=== PATIENT | female | born 1955 | race African-American/Black ===

== ENCOUNTER → 2016-08-04 | Outpatient (CLI) | payer MEDICARE ==
[~2016-08-04] MED LIST: ALUMINUM H PO; ASPIRIN 81M81 MG/TA2 PO; BETASERON0.3 MG SC; CARDI-OMEGA1000 MG PO; CEFTIN 250250 MG/TAB PO; CEFTIN500 MG PO; CIPRO 500MG TA500 MG PO; CLEOCIN HCL300 MG PO; COLACE 100100 MG/CAP PO; CORRECTIVE LAXAT5 MG PO; CRANBERRY450 MG PO; DIME240E; DIME240E PO; DITROPAN 5MG TAB5 MG PO; DULCOLAX10 MG RC; EPA FISH OIL1 SGL PO; INVANZ INJ1 G/VIAL IV; KLOR-CON M2020 MEQ PO; LASIX 20MG TABL20 MG PO; LEVAQUIN 750MG750 M1 PO; LOPRESSOR 225 MG/TAB PO; MAALOX ADVANCE355 ML PO; MACRODANTIN50 MG/CA1 PO; MERREM IV1 GM IV; MILK OF MA400 MG/5 M PO; MIRALAX PA17 GM/Dose PO; MOTRIN 600600 MG/TAB PO; MUCINEX 60600 MG/TA1 PO; MYRBETR50MG PO; NEURONTIN300 MG/CAP PO; NORCO 325 MG-51 TAB PO; NYAMYC100000 U/G TOP; OXYGEN; PEPCID AC20 M1 PO; PRADAXA75 MG PO; SENNA-GEN PO; TOPAMAX50 MG PO; TOPROL XL 25MG25 MG PO; TYLENOL 325MG325 MG PO; ULTRAM 50MG TAB50 MG PO; ULTRAM ER100 MG PO; VITAMIN D31000 IU PO; ZANAFLEX CAPSULE2 MG PO; ZEBETA 5MG5 MG PO; ZOFRAN8 MG PO; ZOSYN 3.373.375 GM/V IV; [UNRECOGNIZED DRUG - CODE]
[2016-08-04 16:34] LABS: PH 8 (5-8); SQUAMOUS EPITHELIAL None Seen /hpf; URINE APPEARANCE Clear; URINE BACTERIA None Seen /hpf; URINE BILIRUBIN Negative (NEGATIVE); URINE BLOOD Negative (NEGATIVE); URINE COLOR Straw; URINE GLUCOSE Negative (NEGATIVE); URINE KETONE Negative (NEGATIVE); URINE RBC 0-2 /hpf; URINE UROBILINOGEN Negative (NEGATIVE); URINE WBC 0-2 /hpf
== END ==
LOC: ZCOL.LAB 16:05 → COL.LAB 16:05
PROVIDERS: Internal Medicine
DX: Z01.89 Encounter for other specified special examinations (principal)

== ENCOUNTER → 2016-08-13 | Outpatient (CLI) | payer MEDICARE ==
[2016-08-13 10:34] LABS: HEMATOCRIT 37.9 % (37.0-47.0); HEMOGLOBIN 12.3 g/dl (12.5-16.0)
[2016-08-13 10:42] LABS: CALCIUM 9.2 mg/dL (8.4-10.2); CREATININE, serum 0.62 mg/dL (0.52-1.25); POTASSIUM 3.9 mmol/L (3.4-5.0)
== END ==
LOC: ZCOL.LAB 09:20
PROVIDERS: Internal Medicine
DX: G35 Multiple sclerosis (principal); E50.7 Other ocular manifestations of vitamin A deficiency

== ENCOUNTER → 2016-08-21 | Outpatient (CLI) | payer MEDICARE ==
[2016-08-21 15:59] LABS: BASO % 0.4 % (0.0-2.0); EOS # 0.2 (0.0-0.7); EOS % 2.5 % (0-4.0); GRAN # 4.4 (1.4-6.5); GRAN % 65.4 % (42.2-75.2); LYMPH # 1.4 (1.2-3.4); LYMPH % 21.3 % (20.0-51.0); MEAN CELL VOLUME 97 fl (80.0-100.0); MEAN CORPUSCULAR HGB CONC 32 g/dl (33.0-37.0); MEAN PLATELET VOLUME 10.9 fl (7.4-10.4); MONO # 0.7 (0.1-0.6); MONO % 10.1 % (1.7-9.3); PLATELET COUNT 240 K/mm3 (130-400); RED BLOOD COUNT 3.71 M/mm3 (4.10-5.30); REDCELL DISTRIBUTION WIDTH-CV 12.3 % (11.5-14.5); WHITE BLOOD COUNT 6.7 K/mm3 (4.8-10.8)
[2016-08-21 16:00] LABS: HEMATOCRIT 35.9 % (37.0-47.0); HEMOGLOBIN 11.6 g/dl (12.5-16.0); MEAN CORPUSCULAR HEMOGLOBIN 31 pg (27.0-31.0)
== END ==
LOC: ZCOL.LAB 15:19
PROVIDERS: Internal Medicine
DX: G35 Multiple sclerosis (principal)

== ENCOUNTER → 2016-08-22 | Outpatient (CLI) | payer MEDICARE ==
[2016-08-22 13:07] LABS: THYROID STIMULATING HORMONE 1.64 uIU/mL (0.465-4.680)
[2016-08-22 13:33] LABS: ADJUSTED CALCIUM 9.8 mg/dL (8.4-10.2); ALBUMIN 3.2 gm/dL (3.5-5.0); BILIRUBIN,TOTAL 0.5 mg/dL (0.0-1.0); CALCIUM 9.2 mg/dL (8.4-10.2); CREATININE, serum 0.57 mg/dL (0.52-1.25); POTASSIUM 4.4 mmol/L (3.4-5.0); TOTAL PROTEIN 6.3 gm/dL (6.4-8.2)
== END ==
LOC: ZCOL.LAB 11:36
PROVIDERS: Internal Medicine
DX: I10 Essential (primary) hypertension (principal); E03.8 Other specified hypothyroidism

== ENCOUNTER → 2016-08-30 | Outpatient (REF) | LOC: ZAIV 06:00 | DX: Z45.2 Encounter for adjustment and management of vascular access device (principal) ==

== ENCOUNTER → 2016-09-05 | Outpatient (CLI) | payer MEDICARE ==
[2016-09-05 16:34] LABS: PH 9 (5-8); URINE APPEARANCE Cloudy; URINE BACTERIA Rare /hpf; URINE BILIRUBIN Negative (NEGATIVE); URINE BLOOD Negative (NEGATIVE); URINE COLOR Yellow; URINE GLUCOSE Negative (NEGATIVE); URINE KETONE Negative (NEGATIVE); URINE URIC ACID CRYSTAL Present /hpf; URINE UROBILINOGEN Negative (NEGATIVE); URINE WBC 20-50 /hpf
== END ==
LOC: ZCOL.LAB 16:02
PROVIDERS: Internal Medicine
DX: N39.0 Urinary tract infection, site not specified (principal)

== ENCOUNTER → 2016-09-10 | Outpatient (CLI) | payer MEDICARE, MEDICAID ==
[2016-09-10 16:54] LABS: HEMATOCRIT 37.7 % (37.0-47.0); HEMOGLOBIN 12.3 g/dl (12.5-16.0)
[2016-09-10 16:58] LABS: CALCIUM 9.1 mg/dL (8.4-10.2); CREATININE, serum 0.6 mg/dL (0.52-1.25); POTASSIUM 4.3 mmol/L (3.4-5.0)
== END ==
LOC: ZCOL.LAB 16:15
PROVIDERS: Internal Medicine
DX: R55 Syncope and collapse (principal); N31.2 Flaccid neuropathic bladder, not elsewhere classified; K21.9 Gastro-esophageal reflux disease without esophagitis

== ENCOUNTER → 2016-09-14 | Outpatient (CLI) | payer MEDICARE, MEDICAID | LOC: ZCOL.LAB 11:25 | DX: Z53.9 Procedure and treatment not carried out, unspecified reason (principal) ==

== ENCOUNTER → 2016-10-02 | Outpatient (CLI) | payer MEDICARE ==
[2016-10-02 21:09] LABS: PH 6 (5-8); URINE APPEARANCE Cloudy; URINE BACTERIA Rare /hpf; URINE BILIRUBIN Negative (NEGATIVE); URINE BLOOD 1+ (NEGATIVE); URINE COLOR Yellow; URINE GLUCOSE Negative (NEGATIVE); URINE KETONE Negative (NEGATIVE); URINE RBC >50 /hpf; URINE UROBILINOGEN Negative (NEGATIVE); URINE WBC 20-50 /hpf
== END ==
LOC: ZCOL.LAB 18:53
PROVIDERS: Internal Medicine
DX: N39.0 Urinary tract infection, site not specified (principal)

== ENCOUNTER → 2016-10-08 | Outpatient (CLI) | payer MEDICARE ==
[2016-10-08 16:01] LABS: ADJUSTED CALCIUM 10.1 mg/dL (8.4-10.2); ALBUMIN 3.2 gm/dL (3.5-5.0); BILIRUBIN,TOTAL 0.5 mg/dL (0.0-1.0); CALCIUM 9.5 mg/dL (8.4-10.2); CREATININE, serum 0.58 mg/dL (0.52-1.25); POTASSIUM 4.4 mmol/L (3.4-5.0); TOTAL PROTEIN 6.4 gm/dL (6.4-8.2)
== END ==
LOC: EDSTATUS 11:43 → ZCOL.LAB 15:14
PROVIDERS: Internal Medicine
DX: I10 Essential (primary) hypertension (principal)

== ENCOUNTER → 2016-10-14 | Outpatient (CLI) | payer MEDICARE | LOC: ZCOL.LAB 21:20 | DX: Z53.9 Procedure and treatment not carried out, unspecified reason (principal) ==

== ENCOUNTER → 2016-10-15 | Outpatient (CLI) | payer MEDICARE, MEDICAID ==
[2016-10-15 07:49] LABS: BASO % 0.6 % (0.0-2.0); EOS # 0.2 (0.0-0.7); EOS % 3.5 % (0-4.0); GRAN # 3.8 (1.4-6.5); GRAN % 59.7 % (42.2-75.2); HEMATOCRIT 37.5 % (37.0-47.0); HEMOGLOBIN 11.6 g/dl (12.5-16.0); LYMPH # 1.8 (1.2-3.4); LYMPH % 28.6 % (20.0-51.0); MEAN CELL VOLUME 102 fl (80.0-100.0); MEAN CORPUSCULAR HEMOGLOBIN 32 pg (27.0-31.0); MEAN CORPUSCULAR HGB CONC 31 g/dl (33.0-37.0); MEAN PLATELET VOLUME 10.9 fl (7.4-10.4); MONO # 0.4 (0.1-0.6); MONO % 6.8 % (1.7-9.3); PLATELET COUNT 290 K/mm3 (130-400); RED BLOOD COUNT 3.68 M/mm3 (4.10-5.30); WHITE BLOOD COUNT 6.3 K/mm3 (4.8-10.8)
== END ==
LOC: ZCOL.LAB 07:17
PROVIDERS: Internal Medicine
DX: N39.0 Urinary tract infection, site not specified (principal)

== ENCOUNTER → 2016-11-02 | Outpatient (CLI) | payer MEDICARE, MEDICAID ==
[2016-11-02 12:32] LABS: PH 8 (5-8); SQUAMOUS EPITHELIAL 0-2 /hpf; URINE APPEARANCE Cloudy; URINE BACTERIA Rare /hpf; URINE BILIRUBIN Negative (NEGATIVE); URINE BLOOD Negative (NEGATIVE); URINE COLOR Yellow; URINE GLUCOSE Negative (NEGATIVE); URINE KETONE Negative (NEGATIVE); URINE URIC ACID CRYSTAL Present /hpf; URINE UROBILINOGEN Negative (NEGATIVE); URINE WBC 20-50 /hpf
== END ==
LOC: ZCOL.LAB 11:00
PROVIDERS: Internal Medicine
DX: Z01.89 Encounter for other specified special examinations (principal)

== ENCOUNTER → 2016-11-05 | Outpatient (CLI) | payer MEDICARE, MEDICAID ==
[2016-11-05 16:05] LABS: HEMATOCRIT 35.1 % (37.0-47.0); HEMOGLOBIN 11.3 g/dl (12.5-16.0)
[2016-11-05 16:12] LABS: CALCIUM 8.9 mg/dL (8.4-10.2); CREATININE, serum 0.58 mg/dL (0.52-1.25); POTASSIUM 4.2 mmol/L (3.4-5.0)
== END ==
LOC: ZCOL.LAB 15:09
PROVIDERS: Internal Medicine
DX: E13.620 Other specified diabetes mellitus with diabetic dermatitis (principal); D55.1 Anemia due to other disorders of glutathione metabolism

== ENCOUNTER → 2016-11-13 | Outpatient (CLI) | payer MEDICARE, MEDICAID ==
[2016-11-13 17:57] LABS: PH 7 (5-8); SQUAMOUS EPITHELIAL 0-2 /hpf; URINE APPEARANCE Clear; URINE BACTERIA None Seen /hpf; URINE BILIRUBIN Negative (NEGATIVE); URINE BLOOD 1+ (NEGATIVE); URINE COLOR Straw; URINE GLUCOSE Negative (NEGATIVE); URINE KETONE Negative (NEGATIVE); URINE RBC 0-2 /hpf; URINE UROBILINOGEN Negative (NEGATIVE)
== END ==
LOC: ZCOL.LAB 17:32
PROVIDERS: Internal Medicine
DX: Z02.89 Encounter for other administrative examinations (principal)

== ENCOUNTER → 2016-11-18 | Outpatient (CLI) | payer MEDICARE, MEDICAID | LOC: ZCOL.LAB 21:30 | DX: E55.9 Vitamin D deficiency, unspecified (principal); Z01.89 Encounter for other specified special examinations ==

== ENCOUNTER → 2016-11-25 | Outpatient (CLI) | payer MEDICARE, MEDICAID ==
[2016-11-25 21:20] LABS: CREATININE, serum 0.62 mg/dL (0.52-1.25); POTASSIUM 4.6 mmol/L (3.4-5.0)
== END ==
LOC: ZCOL.LAB 19:59
PROVIDERS: Internal Medicine
DX: E55.9 Vitamin D deficiency, unspecified (principal); Z02.89 Encounter for other administrative examinations

== ENCOUNTER → 2016-12-03 | Outpatient (CLI) | payer MEDICARE, MEDICAID ==
[2016-12-03 21:27] LABS: HEMATOCRIT 35.3 % (37.0-47.0); HEMOGLOBIN 11.5 g/dl (12.5-16.0)
[2016-12-03 21:33] LABS: CALCIUM 9.2 mg/dL (8.4-10.2); CREATININE, serum 0.63 mg/dL (0.52-1.25); POTASSIUM 4.6 mmol/L (3.4-5.0)
== END ==
LOC: ZCOL.LAB 16:50
PROVIDERS: Internal Medicine
DX: D58.2 Other hemoglobinopathies (principal); E55.9 Vitamin D deficiency, unspecified; Z02.89 Encounter for other administrative examinations

== ENCOUNTER → 2016-12-31 | Outpatient (CLI) | payer MEDICARE, MEDICAID ==
[2016-12-31 14:23] LABS: HEMATOCRIT 36.1 % (37.0-47.0); HEMOGLOBIN 11.5 g/dl (12.5-16.0)
[2016-12-31 14:34] LABS: CALCIUM 8.6 mg/dL (8.4-10.2); CREATININE, serum 0.53 mg/dL (0.52-1.25); POTASSIUM 3.7 mmol/L (3.4-5.0)
== END ==
LOC: ZCOL.LAB 11:10
PROVIDERS: Internal Medicine
DX: E11.21 Type 2 diabetes mellitus with diabetic nephropathy (principal); D55.1 Anemia due to other disorders of glutathione metabolism; E55.9 Vitamin D deficiency, unspecified

== ENCOUNTER → 2017-01-01 | Outpatient (REF) | LOC: ZAIV 06:00 | DX: Z01.89 Encounter for other specified special examinations (principal) ==

== ENCOUNTER → 2017-01-06 | Outpatient (CLI) | payer MEDICARE, MEDICAID ==
[2017-01-06 14:48] LABS: BASO % 0.4 % (0.0-2.0); EOS # 0.4 (0.0-0.7); GRAN # 7.5 (1.4-6.5); GRAN % 70.3 % (42.2-75.2); LYMPH # 1.5 (1.2-3.4); MEAN CELL VOLUME 95 fl (80.0-100.0); MEAN CORPUSCULAR HGB CONC 32 g/dl (33.0-37.0); MEAN PLATELET VOLUME 9.7 fl (7.4-10.4); MONO # 1.1 (0.1-0.6); MONO % 10.6 % (1.7-9.3); PLATELET COUNT 327 K/mm3 (130-400); RED BLOOD COUNT 3.72 M/mm3 (4.10-5.30); REDCELL DISTRIBUTION WIDTH-CV 12.2 % (11.5-14.5); WHITE BLOOD COUNT 10.7 K/mm3 (4.8-10.8)
[2017-01-06 14:49] LABS: HEMATOCRIT 35.2 % (37.0-47.0); HEMOGLOBIN 11.2 g/dl (12.5-16.0); MEAN CORPUSCULAR HEMOGLOBIN 30 pg (27.0-31.0)
== END ==
LOC: ZCOL.LAB 14:29
PROVIDERS: Psychiatry & Neurology Neurology
DX: Z51.81 Encounter for therapeutic drug level monitoring (principal); G35 Multiple sclerosis

== ENCOUNTER → 2017-01-14 | Outpatient (CLI) | payer MEDICARE, MEDICAID ==
[2017-01-14 18:51] LABS: BASO % 0.6 % (0.0-2.0); EOS # 0.4 (0.0-0.7); EOS % 6.7 % (0-4.0); GRAN # 3.1 (1.4-6.5); GRAN % 58.8 % (42.2-75.2); HEMATOCRIT 24.9 % (37.0-47.0); HEMOGLOBIN 7.9 g/dl (12.5-16.0); LYMPH # 1.3 (1.2-3.4); LYMPH % 24.4 % (20.0-51.0); MEAN CELL VOLUME 96 fl (80.0-100.0); MEAN CORPUSCULAR HEMOGLOBIN 30 pg (27.0-31.0); MEAN CORPUSCULAR HGB CONC 32 g/dl (33.0-37.0); MEAN PLATELET VOLUME 9.8 fl (7.4-10.4); MONO # 0.5 (0.1-0.6); MONO % 8.7 % (1.7-9.3); PLATELET COUNT 299 K/mm3 (130-400); REDCELL DISTRIBUTION WIDTH-CV 12.2 % (11.5-14.5); WHITE BLOOD COUNT 5.2 K/mm3 (4.8-10.8)
== END ==
LOC: ZCOL.LAB 18:35
PROVIDERS: Internal Medicine
DX: N39.0 Urinary tract infection, site not specified (principal)

== ENCOUNTER → 2017-01-28 | Outpatient (CLI) | payer MEDICARE, MEDICAID ==
[2017-01-28 16:51] LABS: HEMATOCRIT 37.9 % (37.0-47.0); HEMOGLOBIN 12.3 g/dl (12.5-16.0)
[2017-01-28 16:59] LABS: CALCIUM 8.9 mg/dL (8.4-10.2); CREATININE, serum 0.63 mg/dL (0.52-1.25); POTASSIUM 4.2 mmol/L (3.4-5.0)
== END ==
LOC: ZCOL.LAB 16:37
PROVIDERS: Internal Medicine
DX: D55.1 Anemia due to other disorders of glutathione metabolism (principal); E55.9 Vitamin D deficiency, unspecified

== ENCOUNTER → 2017-02-03 | Outpatient (CLI) | payer MEDICARE, MEDICAID ==
[2017-02-03 17:13] LABS: PH 7 (5-8); URINE APPEARANCE Cloudy; URINE BACTERIA Rare /hpf; URINE BILIRUBIN Negative (NEGATIVE); URINE BLOOD 1+ (NEGATIVE); URINE COLOR Yellow; URINE GLUCOSE Negative (NEGATIVE); URINE KETONE Negative (NEGATIVE); URINE UROBILINOGEN Negative (NEGATIVE); URINE WBC >50 /hpf
== END ==
LOC: ZCOL.LAB 16:17
PROVIDERS: Psychiatry & Neurology Neurology
DX: N32.81 Overactive bladder (principal)

== ENCOUNTER → 2017-02-25 | Outpatient (CLI) | payer MEDICARE, MEDICAID ==
[2017-02-25 16:30] LABS: HEMATOCRIT 37.2 % (37.0-47.0)
[2017-02-25 16:45] LABS: HEMOGLOBIN 11.8 g/dl (12.5-16.0)
== END ==
LOC: ZCOL.LAB 14:53
PROVIDERS: Internal Medicine
DX: D64.9 Anemia, unspecified (principal); E55.9 Vitamin D deficiency, unspecified; I10 Essential (primary) hypertension

== ENCOUNTER → 2017-02-27 | Outpatient (CLI) | payer MEDICARE, MEDICAID ==
[2017-02-27 12:26] LABS: HEMATOCRIT 37.5 % (37.0-47.0)
[2017-02-27 12:27] LABS: HEMOGLOBIN 11.9 g/dl (12.5-16.0)
[2017-02-27 12:40] LABS: CALCIUM 9.1 mg/dL (8.4-10.2); CREATININE, serum 0.59 mg/dL (0.52-1.25); POTASSIUM 4.5 mmol/L (3.4-5.0)
== END ==
LOC: ZCOL.LAB 12:14
PROVIDERS: Internal Medicine
DX: D55.1 Anemia due to other disorders of glutathione metabolism (principal); E55.9 Vitamin D deficiency, unspecified; I10 Essential (primary) hypertension

== ENCOUNTER 2017-03-20 12:15 | Inpatient (IN) | payer MEDICARE, MEDICAID ==
[~2017-03-20] VITALS: Ht 167.6 cm; Wt 98.7 kg
[~2017-03-20 12:15] MED LIST changes: -CIPRO 500MG TA500 MG PO; -EPA FISH OIL1 SGL PO; -MUCINEX 60600 MG/TA1 PO; -MYRBETR50MG PO; -NYAMYC100000 U/G TOP; -TOPROL XL 25MG25 MG PO; -ZEBETA 5MG5 MG PO
[2017-03-20 12:59] LABS: BASO # 0.1 (0.0-0.2); BASO % 0.3 % (0.0-2.0); EOS # 0.1 (0.0-0.7); HEMATOCRIT 39.2 % (37.0-47.0); HEMOGLOBIN 12.7 g/dl (12.5-16.0); LYMPH # 1.3 (1.2-3.4); LYMPH % 8.7 % (20.0-51.0); MEAN CELL VOLUME 93 fl (80.0-100.0); MEAN CORPUSCULAR HEMOGLOBIN 30 pg (27.0-31.0); MEAN CORPUSCULAR HGB CONC 32 g/dl (33.0-37.0); MEAN PLATELET VOLUME 9.4 fl (7.4-10.4); MONO # 0.9 (0.1-0.6); MONO % 6.5 % (1.7-9.3); PLATELET COUNT 339 K/mm3 (130-400); RED BLOOD COUNT 4.24 M/mm3 (4.10-5.30); REDCELL DISTRIBUTION WIDTH-CV 14.1 % (11.5-14.5); WHITE BLOOD COUNT 14.4 K/mm3 (4.8-10.8)
[2017-03-20 13:11] LABS: ADJUSTED CALCIUM 8.9 mg/dL (8.4-10.2); ALBUMIN 3.9 gm/dL (3.5-5.0); BILIRUBIN,TOTAL 0.6 mg/dL (0.0-1.0); CALCIUM 8.8 mg/dL (8.4-10.2); CREATININE, serum 0.53 mg/dL (0.52-1.25); TOTAL PROTEIN 7.8 gm/dL (6.4-8.2)
[2017-03-20 14:11] LABS: PH 8 (5-8); URINE APPEARANCE Cloudy; URINE BACTERIA Rare /hpf; URINE BILIRUBIN Negative (NEGATIVE); URINE BLOOD 2+ (NEGATIVE); URINE COLOR Yellow; URINE GLUCOSE Negative (NEGATIVE); URINE KETONE Negative (NEGATIVE); URINE RBC >50 /hpf; URINE TRIPLE PHOSPHATE CRYSTAL Present /hpf; URINE UROBILINOGEN Negative (NEGATIVE)
[2017-03-20 14:12] LABS: URINE WBC >50 /hpf
[2017-03-20] MEDS ORDERED: ZEBETA 5MG5 MG PO ×2 (14:57)
[2017-03-20] MEDS ORDERED: DIME240E (14:59)
[2017-03-20] MEDS ORDERED: TOPROL XL 25MG25 MG PO (15:03)
[2017-03-20] MEDS ORDERED: EPA FISH OIL1 SGL PO (15:04)
[2017-03-20] MEDS ORDERED: MYRBETR50MG PO (15:05)
[2017-03-20 16:28] VITALS: BP 109/58; PULSE 105; TEMP 98.3
[2017-03-20] MEDS ORDERED: PRADAXA75 MG PO (18:43)
[2017-03-20 20:26] VITALS: BP 127/62; PULSE 95; TEMP 97.2
[2017-03-21 00:09] VITALS: BP 122/73; PULSE 104; TEMP 99.1
[2017-03-21 04:47] VITALS: BP 128/53; PULSE 97; TEMP 98.2
[2017-03-21 06:36] LABS: BASO % 0.4 % (0.0-2.0); EOS # 0.3 (0.0-0.7); EOS % 2.8 % (0-4.0); GRAN % 71.5 % (42.2-75.2); LYMPH # 1.8 (1.2-3.4); LYMPH % 16.2 % (20.0-51.0); MEAN CELL VOLUME 95 fl (80.0-100.0); MEAN CORPUSCULAR HGB CONC 31 g/dl (33.0-37.0); MEAN PLATELET VOLUME 9.5 fl (7.4-10.4); MONO % 8.7 % (1.7-9.3); PLATELET COUNT 310 K/mm3 (130-400); RED BLOOD COUNT 3.77 M/mm3 (4.10-5.30); REDCELL DISTRIBUTION WIDTH-CV 14.1 % (11.5-14.5); WHITE BLOOD COUNT 11.1 K/mm3 (4.8-10.8)
[2017-03-21 06:37] LABS: HEMATOCRIT 35.8 % (37.0-47.0); HEMOGLOBIN 11.2 g/dl (12.5-16.0); MEAN CORPUSCULAR HEMOGLOBIN 30 pg (27.0-31.0)
[2017-03-21 06:52] LABS: CALCIUM 8.4 mg/dL (8.4-10.2); CREATININE, serum 0.55 mg/dL (0.52-1.25); POTASSIUM 3.4 mmol/L (3.4-5.0)
[2017-03-21 07:50] VITALS: BP 124/63; PULSE 103; TEMP 97.1
[2017-03-21 12:02] VITALS: BP 105/76; PULSE 110; TEMP 97.2
[2017-03-21 16:29] VITALS: BP 109/60; PULSE 86; TEMP 98.4
[2017-03-21 19:41] VITALS: BP 114/50; PULSE 103; TEMP 98
[2017-03-22 00:31] VITALS: BP 93/79; PULSE 88; TEMP 98.3
[2017-03-22 04:12] VITALS: BP 122/44; PULSE 87; TEMP 98.6
[2017-03-22 08:15] VITALS: BP 106/57; PULSE 81; TEMP 98.1
[2017-03-22 08:54] LABS: BASO % 0.3 % (0.0-2.0); EOS # 0.4 (0.0-0.7); EOS % 5.1 % (0-4.0); GRAN # 5.1 (1.4-6.5); GRAN % 64.9 % (42.2-75.2); LYMPH # 1.7 (1.2-3.4); MEAN CELL VOLUME 93 fl (80.0-100.0); MEAN CORPUSCULAR HGB CONC 32 g/dl (33.0-37.0); MEAN PLATELET VOLUME 9.2 fl (7.4-10.4); MONO # 0.7 (0.1-0.6); MONO % 8.2 % (1.7-9.3); PLATELET COUNT 301 K/mm3 (130-400); REDCELL DISTRIBUTION WIDTH-CV 14.3 % (11.5-14.5); WHITE BLOOD COUNT 7.9 K/mm3 (4.8-10.8)
[2017-03-22 08:56] LABS: HEMATOCRIT 34.4 % (37.0-47.0); MEAN CORPUSCULAR HEMOGLOBIN 30 pg (27.0-31.0)
[2017-03-22 11:52] VITALS: BP 103/53; PULSE 79; TEMP 98.9
[2017-03-22 16:10] VITALS: BP 110/71; PULSE 72; TEMP 98
[2017-03-22 20:20] VITALS: BP 103/50; PULSE 71; TEMP 98.6
[2017-03-23] VITALS (7 sets, daily range): BP systolic 105–142; BP diastolic 50–84; PULSE 67–85; TEMP 97.8–99.5
[2017-03-24 04:20] VITALS: BP 128/65; PULSE 77; TEMP 98
[2017-03-24 07:52] VITALS: BP 110/55; PULSE 77; TEMP 97.8
[2017-03-24] MEDS ORDERED: MUCINEX 60600 MG/TA1 PO (09:19)
[2017-03-24] MEDS ORDERED: NYAMYC100000 U/G TOP (09:20)
[2017-03-24] MEDS ORDERED: ULTRAM ER100 MG PO (09:21)
[2017-03-24] MEDS ORDERED: CIPRO 500MG TA500 MG PO (09:32)
[2017-03-24 12:48] VITALS: BP 128/67; PULSE 81; TEMP 97.7
[2017-03-24 14:03] VITALS: BP 128/67; PULSE 81; TEMP 97.7
== END 2017-03-24 14:35 | DRG 698 ==
LOC: COL.ER 12:15 → MEDICAL 15:22
PROVIDERS: Emergency Medicine; Family Medicine; Nurse Practitioner Family
DX: T83.511A Infection and inflammatory reaction due to indwelling urethral catheter, initial encounter (principal); A41.52 Sepsis due to Pseudomonas; B96.5 Pseudomonas (aeruginosa) (mallei) (pseudomallei) as the cause of diseases classified elsewhere; N39.0 Urinary tract infection, site not specified; G35 Multiple sclerosis; I10 Essential (primary) hypertension; R13.10 Dysphagia, unspecified
CPT/HCPCS: 99222-AI; 99232-AI; 99239; J0696; J2185; J7030

== ENCOUNTER → 2017-04-04 | Outpatient (CLI) | payer MEDICARE, MEDICAID ==
[~2017-04-04] MED LIST changes: +CIPRO 500MG TA500 MG PO; +EPA FISH OIL1 SGL PO; +MUCINEX 60600 MG/TA1 PO; +MYRBETR50MG PO; +NYAMYC100000 U/G TOP; +TOPROL XL 25MG25 MG PO; +ZEBETA 5MG5 MG PO
[2017-04-04 16:16] LABS: PH 6 (5-8); SQUAMOUS EPITHELIAL 0-2 /hpf; URINE APPEARANCE Clear; URINE BACTERIA Many /hpf; URINE BILIRUBIN Negative (NEGATIVE); URINE BLOOD 2+ (NEGATIVE); URINE COLOR Yellow; URINE GLUCOSE Negative (NEGATIVE); URINE KETONE Negative (NEGATIVE); URINE UROBILINOGEN Negative (NEGATIVE)
== END ==
LOC: ZCOL.LAB 15:53
PROVIDERS: Internal Medicine
DX: N39.0 Urinary tract infection, site not specified (principal)

== ENCOUNTER → 2017-04-17 | Outpatient (CLI) | payer MEDICARE, MEDICAID ==
[2017-04-17 13:02] LABS: BASO % 0.7 % (0.0-2.0); EOS # 0.6 (0.0-0.7); EOS % 10.1 % (0-4.0); GRAN % 49.8 % (42.2-75.2); HEMATOCRIT 38.3 % (37.0-47.0); HEMOGLOBIN 12.2 g/dl (12.5-16.0); LYMPH # 1.8 (1.2-3.4); MEAN CELL VOLUME 94 fl (80.0-100.0); MEAN CORPUSCULAR HEMOGLOBIN 30 pg (27.0-31.0); MEAN CORPUSCULAR HGB CONC 32 g/dl (33.0-37.0); MEAN PLATELET VOLUME 10.6 fl (7.4-10.4); MONO # 0.6 (0.1-0.6); MONO % 9.1 % (1.7-9.3); PLATELET COUNT 289 K/mm3 (130-400); RED BLOOD COUNT 4.07 M/mm3 (4.10-5.30)
== END ==
LOC: ZCOL.LAB 12:43
PROVIDERS: Internal Medicine
DX: N39.0 Urinary tract infection, site not specified (principal)

== ENCOUNTER → 2017-05-09 | Outpatient (CLI) | payer MEDICARE, MEDICAID ==
[2017-05-09 15:06] LABS: COLLECTION METHOD CATHETER
[2017-05-09 15:15] LABS: BUDDING YEAST Present /hpf; MUCOUS Present /lpf; PH 7 (5-8); SQUAMOUS EPITHELIAL 0-2 /hpf; URINE APPEARANCE Cloudy; URINE BACTERIA Rare /hpf; URINE BILIRUBIN Negative (NEGATIVE); URINE BLOOD 3+ (NEGATIVE); URINE COLOR Yellow; URINE GLUCOSE Negative (NEGATIVE); URINE KETONE Negative (NEGATIVE); URINE LEUKOCYTE ESTERASE 2+ (NEGATIVE); URINE PROTEIN(semi-quant) Negative (NEGATIVE); URINE RBC None Seen /hpf; URINE UROBILINOGEN Negative (NEGATIVE)
== END ==
LOC: ZCOL.LAB 15:05
PROVIDERS: Internal Medicine
DX: Z01.89 Encounter for other specified special examinations (principal)

== ENCOUNTER → 2017-05-21 | Outpatient (CLI) | payer MEDICARE, MEDICAID ==
[2017-05-21 15:12] LABS: HEMATOCRIT 39.8 % (37.0-47.0); HEMOGLOBIN 12.8 g/dl (12.5-16.0)
[2017-05-21 15:59] LABS: CREATININE, serum 0.69 mg/dL (0.52-1.25); POTASSIUM 4.4 mmol/L (3.4-5.0)
== END ==
LOC: ZCOL.LAB 13:56
DX: G35 Multiple sclerosis (principal); I10 Essential (primary) hypertension; Z86.711 Personal history of pulmonary embolism

== ENCOUNTER → 2017-06-04 | Outpatient (CLI) | payer MEDICARE, MEDICAID ==
[2017-06-04 05:35] LABS: COLLECTION METHOD CATHETER
[2017-06-04 06:13] LABS: AMORPHOUS CRYSTAL Present /uL; MUCOUS Present /lpf; PH 5 (5-8); URINE APPEARANCE Turbid; URINE BACTERIA Moderate /hpf; URINE BILIRUBIN Negative (NEGATIVE); URINE BLOOD 2+ (NEGATIVE); URINE COLOR Amber; URINE GLUCOSE Negative (NEGATIVE); URINE KETONE Negative (NEGATIVE); URINE LEUKOCYTE ESTERASE 3+ (NEGATIVE); URINE PROTEIN(semi-quant) 1+ (NEGATIVE); URINE RBC 20-50 /hpf; URINE WBC >50 /hpf
== END ==
LOC: ZCOL.LAB 04:26
PROVIDERS: Internal Medicine
DX: N39.0 Urinary tract infection, site not specified (principal)

== ENCOUNTER → 2017-06-18 | Outpatient (CLI) | payer MEDICARE, MEDICAID ==
[2017-06-18 04:11] LABS: HEMATOCRIT 36.2 % (37.0-47.0); HEMOGLOBIN 11.5 g/dl (12.5-16.0)
[2017-06-18 04:23] LABS: CALCIUM 8.6 mg/dL (8.4-10.2); CREATININE, serum 0.74 mg/dL (0.52-1.25); POTASSIUM 3.8 mmol/L (3.4-5.0)
== END ==
LOC: ZCOL.LAB 03:13
PROVIDERS: Psychiatry & Neurology Neurology
DX: E88.9 Metabolic disorder, unspecified (principal); R71.0 Precipitous drop in hematocrit; E55.9 Vitamin D deficiency, unspecified

== ENCOUNTER → 2017-07-04 | Outpatient (CLI) | payer MEDICARE, MEDICAID ==
[2017-07-04 15:08] LABS: COLLECTION METHOD CATHETER
[2017-07-04 15:18] LABS: MUCOUS Present /lpf; PH 6 (5-8); SQUAMOUS EPITHELIAL 0-2 /hpf; URINE APPEARANCE Clear; URINE BACTERIA Rare /hpf; URINE BILIRUBIN Negative (NEGATIVE); URINE BLOOD 3+ (NEGATIVE); URINE COLOR Yellow; URINE GLUCOSE Negative (NEGATIVE); URINE KETONE Negative (NEGATIVE); URINE LEUKOCYTE ESTERASE 2+ (NEGATIVE); URINE PROTEIN(semi-quant) 1+ (NEGATIVE); URINE RBC >50 /hpf; URINE UROBILINOGEN Negative (NEGATIVE); URINE WBC 20-50 /hpf
== END ==
LOC: ZCOL.LAB 15:03
PROVIDERS: Internal Medicine
DX: N39.0 Urinary tract infection, site not specified (principal)

== ENCOUNTER → 2017-07-17 | Outpatient (REF) ==
[2017-07-17 17:57] LABS: HEMOGLOBIN 12.2 g/dl (12.5-16.0)
[2017-07-17 18:13] LABS: CALCIUM 8.9 mg/dL (8.4-10.2); CREATININE, serum 0.75 mg/dL (0.52-1.25); POTASSIUM 4.6 mmol/L (3.4-5.0)
== END ==
LOC: ZCOL.LAB 17:52
PROVIDERS: Psychiatry & Neurology Neurology
DX: Z01.89 Encounter for other specified special examinations (principal)

== ENCOUNTER → 2017-07-17 | Outpatient (CLI) | payer MEDICARE, MEDICAID | LOC: COL.RAD 12:29 | DX: G35 Multiple sclerosis (principal); R42 Dizziness and giddiness | CPT/HCPCS: A9585 ==

== ENCOUNTER 2017-07-29 10:53 | Outpatient (CLI) | payer MEDICARE, MEDICAID ==
[~2017-07-29] VITALS: Ht 167.6 cm; Wt 103.8 kg
[2017-07-29 11:29] VITALS: BP 99/61; PULSE 66; TEMP 98
== END 2017-07-29 15:18 ==
LOC: EUO 10:53
DX: G35 Multiple sclerosis (principal); Z79.899 Other long term (current) drug therapy
CPT/HCPCS: C9494; J2930; J7050

== ENCOUNTER → 2017-08-08 | Outpatient (CLI) | payer MEDICARE, MEDICAID | LOC: ZCOL.LAB 13:55 | DX: N39.0 Urinary tract infection, site not specified (principal) ==

== ENCOUNTER 2017-08-13 09:58 | Outpatient (CLI) | payer MEDICARE, MEDICAID ==
[2017-08-13 10:59] VITALS: BP 113/83; PULSE 61; TEMP 97.9
[2017-08-13 11:30] VITALS: BP 113/75; PULSE 84; TEMP 97.3
[2017-08-13] MEDS ORDERED: FLEXERIL5 MG PO (11:32)
[2017-08-13 12:00] VITALS: BP 111/76; PULSE 84; TEMP 97.2
[2017-08-13 12:30] VITALS: BP 109/77; PULSE 84; TEMP 97.5
[2017-08-13 13:30] VITALS: BP 109/60; BP 113/70; PULSE 71; PULSE 75; TEMP 97.5
== END 2017-08-13 15:08 | disposition home or self-care (01) ==
LOC: EUO 09:58
DX: G35 Multiple sclerosis (principal)
CPT/HCPCS: J2350; J2930; J7050

== ENCOUNTER → 2017-08-18 | Outpatient (REF) ==
[~2017-08-18] MED LIST changes: +FLEXERIL5 MG PO
[2017-08-18 07:12] LABS: HEMATOCRIT 37.8 % (37.0-47.0)
[2017-08-18 07:13] LABS: HEMOGLOBIN 11.9 g/dl (12.5-16.0)
[2017-08-18 07:24] LABS: CALCIUM 8.7 mg/dL (8.4-10.2); CREATININE, serum 0.67 mg/dL (0.52-1.25); POTASSIUM 4.2 mmol/L (3.4-5.0)
== END ==
LOC: ZCOL.LAB 06:59
PROVIDERS: Internal Medicine
DX: Z01.89 Encounter for other specified special examinations (principal)

== ENCOUNTER → 2017-08-21 | Outpatient (CLI) | payer MEDICARE, MEDICAID ==
[2017-08-21 04:00] LABS: ALBUMIN 3.2 gm/dL (3.5-5.0); BILIRUBIN,TOTAL 0.6 mg/dL (0.0-1.0); CALCIUM 8.9 mg/dL (8.4-10.2); CREATININE, serum 0.64 mg/dL (0.52-1.25); POTASSIUM 4.5 mmol/L (3.4-5.0); TOTAL PROTEIN 6.6 gm/dL (6.4-8.2)
[2017-08-21 04:12] LABS: THYROID STIMULATING HORMONE 1.58 uIU/mL (0.465-4.680)
== END ==
LOC: ZCOL.LAB 03:04
PROVIDERS: Internal Medicine
DX: E13.620 Other specified diabetes mellitus with diabetic dermatitis (principal); R79.89 Other specified abnormal findings of blood chemistry; R94.6 Abnormal results of thyroid function studies; E78.00 Pure hypercholesterolemia, unspecified

== ENCOUNTER 2017-08-26 10:20 | Day surgery (SDC) | payer MEDICARE, MEDICAID ==
[~2017-08-26] VITALS: Ht 167.6 cm; Wt 95.9 kg
[2017-08-26 11:26] VITALS: BP 112/67; PULSE 75; TEMP 98
[2017-08-26] MEDS ORDERED: VITAMIND3 5000 PO (11:44)
[2017-08-26] MEDS ORDERED: MACRODANTIN50 MG/CA1 PO (11:47)
[2017-08-26 17:15] VITALS: BP 107/58; PULSE 74
== END 2017-08-26 17:10 ==
LOC: SDCO 10:20
DX: G35 Multiple sclerosis (principal); N31.9 Neuromuscular dysfunction of bladder, unspecified; N32.81 Overactive bladder; K21.9 Gastro-esophageal reflux disease without esophagitis; I10 Essential (primary) hypertension; Z79.82 Long term (current) use of aspirin; Z86.711 Personal history of pulmonary embolism; Z88.0 Allergy status to penicillin; Z88.2 Allergy status to sulfonamides; Z88.8 Allergy status to other drugs, medicaments and biological substances; G47.00 Insomnia, unspecified; M62.81 Muscle weakness (generalized)
CPT/HCPCS: C1769

== ENCOUNTER → 2017-09-15 | Outpatient (CLI) | payer MEDICARE, MEDICAID ==
[~2017-09-15] MED LIST changes: +VITAMIND3 5000 PO
[2017-09-15 05:14] LABS: HEMATOCRIT 40.7 % (37.0-47.0); HEMOGLOBIN 12.7 g/dl (12.5-16.0)
[2017-09-15 05:21] LABS: CALCIUM 8.8 mg/dL (8.4-10.2); CREATININE, serum 0.65 mg/dL (0.52-1.25); POTASSIUM 3.9 mmol/L (3.4-5.0)
== END ==
LOC: COL.LAB 04:54
PROVIDERS: Internal Medicine
DX: G35 Multiple sclerosis (principal); E55.9 Vitamin D deficiency, unspecified

== ENCOUNTER 2017-09-30 09:29 | Day surgery (SDC) | payer MEDICARE, MEDICAID ==
[~2017-09-30] VITALS: Ht 167.6 cm; Wt 98.9 kg
[2017-09-30 10:11] VITALS: BP 112/63; PULSE 73; TEMP 97.7
[2017-09-30] MEDS ORDERED: DULCOLAX TAB5 MG PO (10:38)
[2017-09-30] MEDS ORDERED: RITALIN 5MG5 MG/TAB PO (10:39)
== END 2017-09-30 13:51 | disposition home or self-care (01) ==
LOC: SDCO 09:29
DX: N36.5 Urethral false passage (principal); N31.9 Neuromuscular dysfunction of bladder, unspecified; N39.0 Urinary tract infection, site not specified; N39.46 Mixed incontinence; G35 Multiple sclerosis; R13.10 Dysphagia, unspecified; I10 Essential (primary) hypertension; K21.9 Gastro-esophageal reflux disease without esophagitis; R29.3 Abnormal posture
CPT/HCPCS: 3305

== ENCOUNTER → 2017-10-03 | Outpatient (CLI) | payer MEDICARE, MEDICAID ==
[~2017-10-03] MED LIST changes: +DULCOLAX TAB5 MG PO; +RITALIN 5MG5 MG/TAB PO
[2017-10-03 12:41] LABS: COLLECTION METHOD CATHETER
[2017-10-03 13:03] LABS: MUCOUS Present /lpf; PH 6 (5-8); URINE APPEARANCE Cloudy; URINE BACTERIA Rare /hpf; URINE BILIRUBIN Negative (NEGATIVE); URINE BLOOD 3+ (NEGATIVE); URINE COLOR Yellow; URINE GLUCOSE Negative (NEGATIVE); URINE KETONE Negative (NEGATIVE); URINE LEUKOCYTE ESTERASE 3+ (NEGATIVE); URINE NITRATE Negative (NEGATIVE); URINE PROTEIN(semi-quant) 2+ (NEGATIVE); URINE RBC >50 /hpf; URINE UROBILINOGEN Negative (NEGATIVE); URINE WBC >50 /hpf
== END ==
LOC: ZCOL.LAB 12:23
PROVIDERS: Internal Medicine
DX: N39.0 Urinary tract infection, site not specified (principal)

== ENCOUNTER → 2017-10-15 | Outpatient (REF) ==
[2017-10-15 17:15] LABS: HEMATOCRIT 45.1 % (37.0-47.0); HEMOGLOBIN 14.3 g/dl (12.5-16.0)
[2017-10-15 17:27] LABS: CREATININE, serum 0.77 mg/dL (0.52-1.25); POTASSIUM 4.9 mmol/L (3.4-5.0)
== END ==
LOC: ZCOL.LAB 17:08
PROVIDERS: Internal Medicine
DX: G35 Multiple sclerosis (principal); E55.9 Vitamin D deficiency, unspecified; Z86.711 Personal history of pulmonary embolism

== ENCOUNTER → 2017-11-07 | Outpatient (REF) ==
[2017-11-07 13:00] LABS: COLLECTION METHOD CATHETER
[2017-11-07 13:44] LABS: MUCOUS Present /lpf; PH 5 (5-8); SQUAMOUS EPITHELIAL 0-2 /hpf; URINE APPEARANCE Turbid; URINE BACTERIA Occasional /hpf; URINE BILIRUBIN Negative (NEGATIVE); URINE BLOOD Negative (NEGATIVE); URINE CALCIUM OXALATE CRYSTAL Present /hpf; URINE COLOR Yellow; URINE GLUCOSE Negative (NEGATIVE); URINE KETONE Negative (NEGATIVE); URINE LEUKOCYTE ESTERASE 3+ (NEGATIVE); URINE NITRATE Negative (NEGATIVE); URINE PROTEIN(semi-quant) 2+ (NEGATIVE); URINE RBC >50 /hpf; URINE UROBILINOGEN Negative (NEGATIVE); URINE WBC >50 /hpf
== END ==
LOC: ZCOL.LAB 12:54
PROVIDERS: Internal Medicine
DX: N39.0 Urinary tract infection, site not specified (principal)

== ENCOUNTER → 2017-11-12 | Outpatient (CLI) | payer MEDICARE, MEDICAID ==
[2017-11-12 14:28] LABS: HEMATOCRIT 42.9 % (37.0-47.0); HEMOGLOBIN 13.5 g/dl (12.5-16.0)
[2017-11-12 14:42] LABS: ALBUMIN 2.8 gm/dL (3.5-5.0); BILIRUBIN,TOTAL 0.2 mg/dL (0.0-1.0); CALCIUM 8.8 mg/dL (8.4-10.2); CREATININE, serum 0.77 mg/dL (0.52-1.25); POTASSIUM 4.4 mmol/L (3.4-5.0); TOTAL PROTEIN 6.2 gm/dL (6.4-8.2)
== END ==
LOC: ZCOL.LAB 14:23
PROVIDERS: Internal Medicine
DX: I10 Essential (primary) hypertension (principal); M62.81 Muscle weakness (generalized); E55.9 Vitamin D deficiency, unspecified

== ENCOUNTER → 2017-12-05 | Outpatient (REF) | LOC: ZCOL.LAB 14:48 | DX: N31.2 Flaccid neuropathic bladder, not elsewhere classified (principal) ==

== ENCOUNTER 2017-12-10 10:26 | Outpatient (CLI) | payer MEDICARE, MEDICAID ==
[~2017-12-10] VITALS: Ht 167.6 cm; Wt 95.0 kg
[2017-12-10 11:02] VITALS: BP 103/77; PULSE 77; TEMP 98
[2017-12-10] MEDS ORDERED: DIME240E PO (11:21)
== END 2017-12-10 12:45 | disposition home or self-care (01) ==
LOC: SDCO 10:26
DX: N31.9 Neuromuscular dysfunction of bladder, unspecified (principal); K59.00 Constipation, unspecified; K21.9 Gastro-esophageal reflux disease without esophagitis; I10 Essential (primary) hypertension; G47.00 Insomnia, unspecified; G35 Multiple sclerosis; N32.81 Overactive bladder; Z79.82 Long term (current) use of aspirin; Z79.01 Long term (current) use of anticoagulants; Z88.0 Allergy status to penicillin; Z88.2 Allergy status to sulfonamides; Z88.5 Allergy status to narcotic agent; Z88.8 Allergy status to other drugs, medicaments and biological substances; Z86.711 Personal history of pulmonary embolism; Z82.49 Family history of ischemic heart disease and other diseases of the circulatory system

== ENCOUNTER → 2017-12-10 | Outpatient (CLI) | payer MEDICARE, MEDICAID ==
[2017-12-10 10:04] LABS: HEMATOCRIT 39.4 % (37.0-47.0); HEMOGLOBIN 12.6 g/dl (12.5-16.0)
[2017-12-10 10:17] LABS: CALCIUM 8.7 mg/dL (8.4-10.2); CREATININE, serum 0.67 mg/dL (0.52-1.25); POTASSIUM 4.5 mmol/L (3.4-5.0)
== END ==
LOC: ZCOL.LAB 09:55
PROVIDERS: Internal Medicine
DX: E55.9 Vitamin D deficiency, unspecified (principal); I10 Essential (primary) hypertension; Z86.711 Personal history of pulmonary embolism

== ENCOUNTER → 2018-01-05 | Outpatient (CLI) | payer MEDICARE, MEDICAID | LOC: ZCOL.LAB 12:39 | DX: N39.0 Urinary tract infection, site not specified (principal) ==

== ENCOUNTER → 2018-01-08 | Outpatient (CLI) | payer MEDICARE, MEDICAID ==
[2018-01-08 18:24] LABS: HEMATOCRIT 40.8 % (37.0-47.0); HEMOGLOBIN 12.9 g/dl (12.5-16.0)
[2018-01-08 18:35] LABS: CALCIUM 8.9 mg/dL (8.4-10.2); CREATININE, serum 0.81 mg/dL (0.52-1.25); POTASSIUM 4.5 mmol/L (3.4-5.0)
== END ==
LOC: ZCOL.LAB 18:14
PROVIDERS: Internal Medicine
DX: I10 Essential (primary) hypertension (principal); D64.9 Anemia, unspecified; E55.9 Vitamin D deficiency, unspecified

== ENCOUNTER → 2018-02-27 | Outpatient (CLI) | payer MEDICARE, MEDICAID | LOC: ZCOL.LAB 11:59 | DX: Z01.89 Encounter for other specified special examinations (principal) ==

== ENCOUNTER → 2018-03-09 | Outpatient (REF) | LOC: ZCOL.LAB 10:36 | DX: Z01.89 Encounter for other specified special examinations (principal); E55.9 Vitamin D deficiency, unspecified ==

== ENCOUNTER → 2018-04-07 | Outpatient (CLI) | payer MEDICARE, MEDICAID | LOC: ZCOL.LAB 18:15 | DX: Z45.2 Encounter for adjustment and management of vascular access device (principal) ==

== ENCOUNTER → 2018-04-29 | Outpatient (REF) ==
[2018-04-29 09:58] LABS: BASO % 0.4 % (0.0-2.0); EOS # 0.3 (0.0-0.7); EOS % 3.5 % (0-4.0); GRAN # 6.1 (1.4-6.5); GRAN % 67.7 % (42.2-75.2); HEMATOCRIT 43.5 % (37.0-47.0); HEMOGLOBIN 13.5 g/dl (12.5-16.0); LYMPH # 1.9 (1.2-3.4); LYMPH % 20.9 % (20.0-51.0); MEAN CELL VOLUME 94 fl (80.0-100.0); MEAN CORPUSCULAR HEMOGLOBIN 29 pg (27.0-31.0); MEAN CORPUSCULAR HGB CONC 31 g/dl (33.0-37.0); MEAN PLATELET VOLUME 9.7 fl (7.4-10.4); MONO # 0.7 (0.1-0.6); MONO % 7.3 % (1.7-9.3); PLATELET COUNT 333 K/mm3 (130-400); RED BLOOD COUNT 4.61 M/mm3 (4.10-5.30); REDCELL DISTRIBUTION WIDTH-CV 13.4 % (11.5-14.5)
[2018-04-29 10:15] LABS: CREATININE, serum 0.61 mg/dL (0.52-1.25); POTASSIUM 4.5 mmol/L (3.4-5.0)
== END ==
LOC: ZCOL.LAB 09:45
PROVIDERS: Internal Medicine
DX: G35 Multiple sclerosis (principal); E55.9 Vitamin D deficiency, unspecified; Z86.711 Personal history of pulmonary embolism

== ENCOUNTER → 2018-05-27 | Outpatient (CLI) | payer MEDICARE, MEDICAID ==
[2018-05-27 14:29] LABS: HEMATOCRIT 47.3 % (37.0-47.0); HEMOGLOBIN 14.8 g/dl (12.5-16.0)
[2018-05-27 14:44] LABS: CALCIUM 9.1 mg/dL (8.4-10.2); CREATININE, serum 0.58 mg/dL (0.52-1.25); POTASSIUM 4.3 mmol/L (3.4-5.0)
== END ==
LOC: COL.LAB 13:19
PROVIDERS: Internal Medicine
DX: G35 Multiple sclerosis (principal)

== ENCOUNTER 2018-06-02 12:19 | Day surgery (SDC) | payer MEDICARE, MEDICAID ==
[~2018-06-02] VITALS: Ht 167.6 cm; Wt 91.8 kg
[2018-06-02 13:36] VITALS: BP 109/63; PULSE 70; TEMP 98.2
[2018-06-02] MEDS ORDERED: DULCOLAX TAB5 MG PO (13:56)
[2018-06-02] MEDS ORDERED: RITALIN 5MG5 MG/TAB PO (13:57)
[2018-06-02] MEDS ORDERED: PEPCID 20MG TAB20 MG PO (13:57)
[2018-06-02] MEDS ORDERED: REFRESH TEARS 330 ML OU (13:58)
[2018-06-02] MEDS ORDERED: SALESE1 LOZ PO (13:58)
[2018-06-02] MEDS ORDERED: NORCO 325 MG-51 TAB PO (13:59)
[2018-06-02] MEDS ORDERED: NORCO 325 MG-101 TAB PO (14:00)
[2018-06-02 16:30] VITALS: BP 109/72; PULSE 66; TEMP 97.6
[2018-06-02] MEDS ORDERED: PYRIDIUM 100MG100 MG PO (16:41)
[2018-06-02] MEDS ORDERED: CIPRO 500MG TA500 MG PO (16:41)
[2018-06-02 16:45] VITALS: BP 120/74; PULSE 61
[2018-06-02 17:00] VITALS: BP 109/72; PULSE 76; TEMP 97.6
== END 2018-06-02 17:35 ==
LOC: SDCO 12:19
DX: N36.42 Intrinsic sphincter deficiency (ISD) (principal); N39.3 Stress incontinence (female) (male); K59.00 Constipation, unspecified; N31.8 Other neuromuscular dysfunction of bladder; K21.0 Gastro-esophageal reflux disease with esophagitis; I10 Essential (primary) hypertension; N32.81 Overactive bladder; G35 Multiple sclerosis; N31.9 Neuromuscular dysfunction of bladder, unspecified; Z79.82 Long term (current) use of aspirin; Z88.0 Allergy status to penicillin; Z88.1 Allergy status to other antibiotic agents; Z88.5 Allergy status to narcotic agent; Z88.2 Allergy status to sulfonamides; Z86.711 Personal history of pulmonary embolism; Z87.440 Personal history of urinary (tract) infections; Z82.49 Family history of ischemic heart disease and other diseases of the circulatory system
CPT/HCPCS: A4215; J0690; J1100; J1885; J2405; J2704; J3010; J7120; L8606

== ENCOUNTER 2018-06-12 06:19 | Emergency (ER) | payer MEDICARE, MEDICAID ==
[~2018-06-12] VITALS: Ht 167.6 cm; Wt 93.6 kg
[~2018-06-12 06:19] MED LIST changes: +NORCO 325 MG-101 TAB PO; +PEPCID 20MG TAB20 MG PO; +PYRIDIUM 100MG100 MG PO; +REFRESH TEARS 330 ML OU; +SALESE1 LOZ PO
[2018-06-12 06:22] VITALS: TEMP 98.7
[2018-06-12 07:32] LABS: COLLECTION METHOD CATHETER
[2018-06-12] MEDS ORDERED: OMNICEF 300MG300 MG PO (07:41)
[2018-06-12 07:45] LABS: AMORPHOUS CRYSTAL Present /uL; PH 8 (5-8); URINE APPEARANCE Cloudy; URINE BACTERIA Rare /hpf; URINE BILIRUBIN Negative (NEGATIVE); URINE BLOOD 3+ (NEGATIVE); URINE COLOR Yellow; URINE GLUCOSE Negative (NEGATIVE); URINE KETONE Negative (NEGATIVE); URINE LEUKOCYTE ESTERASE 3+ (NEGATIVE); URINE NITRATE Negative (NEGATIVE); URINE PROTEIN(semi-quant) 1+ (NEGATIVE); URINE RBC >50 /hpf; URINE UROBILINOGEN Negative (NEGATIVE)
[2018-06-12 08:53] VITALS: BP 123/83; PULSE 83
[2018-06-14] MEDS ORDERED: MACROBID 1100 MG/CAP PO (16:36)
== END 2018-06-12 08:54 | disposition home or self-care (01) ==
LOC: COL.ER 06:19
PROVIDERS: Emergency Medicine
DX: T83.098A Other mechanical complication of other urinary catheter, initial encounter (principal); N31.2 Flaccid neuropathic bladder, not elsewhere classified; N39.498 Other specified urinary incontinence; R31.9 Hematuria, unspecified; K21.9 Gastro-esophageal reflux disease without esophagitis; Z86.711 Personal history of pulmonary embolism; Z79.82 Long term (current) use of aspirin

== ENCOUNTER → 2018-06-30 | Outpatient (REF) ==
[~2018-06-30] MED LIST changes: +MACROBID 1100 MG/CAP PO; +OMNICEF 300MG300 MG PO
[2018-06-30 12:37] LABS: HEMATOCRIT 45.4 % (37.0-47.0); HEMOGLOBIN 14.2 g/dl (12.5-16.0)
== END ==
LOC: ZCOL.LAB 12:14
PROVIDERS: Internal Medicine
DX: G35 Multiple sclerosis (principal); E55.9 Vitamin D deficiency, unspecified

== ENCOUNTER → 2018-07-02 | Outpatient (REF) ==
[2018-07-02 16:03] LABS: BASO % 0.3 % (0.0-2.0); EOS # 0.4 (0.0-0.7); GRAN # 4.1 (1.4-6.5); GRAN % 56.4 % (42.2-75.2); HEMATOCRIT 43.1 % (37.0-47.0); HEMOGLOBIN 13.4 g/dl (12.5-16.0); LYMPH # 2.2 (1.2-3.4); MEAN CELL VOLUME 96 fl (80.0-100.0); MEAN CORPUSCULAR HEMOGLOBIN 30 pg (27.0-31.0); MEAN CORPUSCULAR HGB CONC 31 g/dl (33.0-37.0); MEAN PLATELET VOLUME 9.9 fl (7.4-10.4); MONO # 0.6 (0.1-0.6); PLATELET COUNT 282 K/mm3 (130-400); REDCELL DISTRIBUTION WIDTH-CV 13.4 % (11.5-14.5)
[2018-07-02 16:13] LABS: CALCIUM 8.9 mg/dL (8.4-10.2); CREATININE, serum 0.72 mg/dL (0.52-1.25); POTASSIUM 4.1 mmol/L (3.4-5.0)
== END ==
LOC: ZCOL.LAB 15:54
PROVIDERS: Internal Medicine
DX: G35 Multiple sclerosis (principal)

== ENCOUNTER → 2018-08-08 | Outpatient (REF) ==
[2018-08-08 01:03] LABS: COLLECTION METHOD CATHETER
[2018-08-08 01:13] LABS: AMORPHOUS CRYSTAL Present /uL; BUDDING YEAST Present /hpf; MUCOUS Present /lpf; PH 5 (5-8); URINE APPEARANCE Cloudy; URINE BACTERIA Rare /hpf; URINE BILIRUBIN Negative (NEGATIVE); URINE BLOOD 2+ (NEGATIVE); URINE CALCIUM OXALATE CRYSTAL Present /hpf; URINE COLOR Yellow; URINE GLUCOSE Negative (NEGATIVE); URINE KETONE Negative (NEGATIVE); URINE LEUKOCYTE ESTERASE 2+ (NEGATIVE); URINE NITRATE Positive (NEGATIVE); URINE PROTEIN(semi-quant) 1+ (NEGATIVE); URINE RBC 20-50 /hpf; URINE WBC >50 /hpf
== END ==
LOC: ZCOL.LAB 01:00
PROVIDERS: Urology
DX: N39.0 Urinary tract infection, site not specified (principal)

== ENCOUNTER → 2018-08-25 | Outpatient (REF) ==
[2018-08-25 15:13] LABS: CALCIUM 9.4 mg/dL (8.4-10.2); CREATININE, serum 0.65 mg/dL (0.52-1.25); POTASSIUM 4.4 mmol/L (3.4-5.0)
== END ==
LOC: ZCOL.LAB 14:43
PROVIDERS: Internal Medicine
DX: Z01.89 Encounter for other specified special examinations (principal)

== ENCOUNTER → 2018-08-27 | Outpatient (CLI) | payer MEDICARE, MEDICAID ==
[2018-08-27 13:21] LABS: HEMATOCRIT 46.1 % (37.0-47.0); HEMOGLOBIN 14.6 g/dl (12.5-16.0)
== END ==
LOC: ZCOL.LAB 13:09
PROVIDERS: Internal Medicine
DX: G35 Multiple sclerosis (principal)

== ENCOUNTER 2018-09-04 15:07 | Inpatient (IN) | payer MEDICARE, MEDICAID ==
[~2018-09-04] VITALS: Ht 160 cm; Wt 92.8 kg
[2018-09-04 15:42] LABS: BASO % 0.4 % (0.0-2.0); EOS % 0.5 % (0-4.0); GRAN # 8.1 (1.4-6.5); GRAN % 95.1 % (42.2-75.2); HEMATOCRIT 47.4 % (37.0-47.0); HEMOGLOBIN 15.4 g/dl (12.5-16.0); LYMPH # 0.2 (1.2-3.4); LYMPH % 2.6 % (20.0-51.0); MEAN CELL VOLUME 93 fl (80.0-100.0); MEAN CORPUSCULAR HEMOGLOBIN 30 pg (27.0-31.0); MEAN CORPUSCULAR HGB CONC 33 g/dl (33.0-37.0); MEAN PLATELET VOLUME 9.4 fl (7.4-10.4); MONO # 0.1 (0.1-0.6); MONO % 0.9 % (1.7-9.3); PLATELET COUNT 241 K/mm3 (130-400); RED BLOOD COUNT 5.11 M/mm3 (4.10-5.30); REDCELL DISTRIBUTION WIDTH-CV 12.7 % (11.5-14.5)
[2018-09-04 17:08] LABS: COLLECTION METHOD CATHETER
[2018-09-04 17:19] LABS: MUCOUS Present /lpf; PH 7 (5-8); SQUAMOUS EPITHELIAL 0-2 /hpf; URINE APPEARANCE Hazy; URINE BACTERIA Rare /hpf; URINE BILIRUBIN Negative (NEGATIVE); URINE BLOOD 3+ (NEGATIVE); URINE COLOR Yellow; URINE GLUCOSE Negative (NEGATIVE); URINE KETONE Negative (NEGATIVE); URINE LEUKOCYTE ESTERASE 3+ (NEGATIVE); URINE NITRATE Negative (NEGATIVE); URINE PROTEIN(semi-quant) Negative (NEGATIVE); URINE RBC >50 /hpf; URINE UROBILINOGEN Negative (NEGATIVE)
--- NOTE | 2018-09-04 18:22 | NUR ---
REPORT RECEIEVED FROM MARTIN PATEL IN ED.
--- NOTE | 2018-09-04 18:23 | NUR ---
MARTIN PATEL IN ED STATES SHE HAS NOT UPDATED MED LIST BUT WILL.
[2018-09-04] MEDS ORDERED: PRADAXA75 MG PO (18:24)
[2018-09-04] MEDS ORDERED: EPA FISH OIL1 SGL PO (18:24)
[2018-09-04] MEDS ORDERED: PEPCID 20MG TAB20 MG PO (18:25)
[2018-09-04 18:26] VITALS: BP 112/67; PULSE 112; TEMP 98
[2018-09-04 18:29] LABS: ALANINE AMINOTRANSFERASE 13 U/L (9-52); ALBUMIN 3.2 gm/dL (3.5-5.0); ALKALINE PHOSPHATASE 96 U/L (50-136); ANION GAP 6 mmol/L (7-16); AST,SGOT 21 U/L (15-37); BILIRUBIN,TOTAL 0.6 mg/dL (0.0-1.0); BLOOD UREA NITROGEN 12 mg/dL (7-17); C-REACTIVE PROTEIN 3.3 mg/dL (0.0-0.9); CALCIUM 8.4 mg/dL (8.4-10.2); CARBON DIOXIDE 27 mmol/L (22-30); CHLORIDE 108 mmol/L (98-107); CREATININE, serum 0.61 mg/dL (0.52-1.25); GLUCOSE 118 mg/dL (74-106); LIPASE 15 U/L (23-300); MAGNESIUM 1.5 mg/dL (1.6-2.3); PHOSPHOROUS 2.6 mg/dL (2.5-4.5); POTASSIUM 3.5 mmol/L (3.4-5.0); SODIUM 141 mmol/L (137-145); TOTAL PROTEIN 6.6 gm/dL (6.4-8.2)
--- NOTE | 2018-09-04 18:30 | NUR ---
PT BROUGHT OVER FROM ED VIA STRETCHER. PT DROWSY BUT AROUSABLE. PT ORIENTED X4 WHILE AWAKE. PT ON ROOM AIR. PT HAS HX OF END STAGE MS. PT BED RIDDEN. SUPRAPUBIC CATH IN PLACE. NO FAMILY WITH PATIENT.
[2018-09-04 18:39] LABS: TROPONIN-I < 0.012 ng/mL (0.000-0.035)
[2018-09-04 20:00] VITALS: BP 109/40; PULSE 105; TEMP 98.4
--- NOTE | 2018-09-04 20:00 | NUR ---
Shift assessment complete at this time. Plan of care reviewed at bedside with patient et family. Additional time taken to address any other needs or concerns. Vitals stable at this time. Pt denies any pain or discomfort. Will continue to monitor.
[2018-09-05] VITALS: BP 97/54; PULSE 94; TEMP 97.9
--- NOTE | 2018-09-05 | NUR ---
Pt sleeping comfortably in bed. No changes in neuro status from previous assessment. Vitals stable at this time. Denies pain or any other discomfort. Will continue to monitor.
[2018-09-05] MEDS ORDERED: DIME240E PO (01:25)
[2018-09-05 04:00] VITALS: BP 107/67; PULSE 84; TEMP 97.9
--- NOTE | 2018-09-05 04:00 | NUR ---
Pt sleeping comfortably in bed. Denies pain or any other discomfort. No changes from previous neuro assessment. Vitals stable at this time. Will continue to monitor.
[2018-09-05 05:51] LABS: BASO # 0.1 (0.0-0.2); BASO % 0.4 % (0.0-2.0); EOS % 0.1 % (0-4.0); GRAN # 23.4 (1.4-6.5); LYMPH # 1.3 (1.2-3.4); LYMPH % 4.8 % (20.0-51.0); MEAN CELL VOLUME 94 fl (80.0-100.0); MEAN CORPUSCULAR HGB CONC 33 g/dl (33.0-37.0); MEAN PLATELET VOLUME 9.4 fl (7.4-10.4); MONO # 1.7 (0.1-0.6); MONO % 6.3 % (1.7-9.3); PLATELET COUNT 211 K/mm3 (130-400); RED BLOOD COUNT 3.68 M/mm3 (4.10-5.30); REDCELL DISTRIBUTION WIDTH-CV 13.2 % (11.5-14.5)
[2018-09-05 05:55] LABS: HEMATOCRIT 34.5 % (37.0-47.0); HEMOGLOBIN 11.2 g/dl (12.5-16.0); MEAN CORPUSCULAR HEMOGLOBIN 30 pg (27.0-31.0)
[2018-09-05 06:01] LABS: ALBUMIN 2.5 gm/dL (3.5-5.0); BILIRUBIN,TOTAL 0.2 mg/dL (0.0-1.0); CALCIUM 7.8 mg/dL (8.4-10.2); CREATININE, serum 0.63 mg/dL (0.52-1.25); POTASSIUM 4.3 mmol/L (3.4-5.0); TOTAL PROTEIN 5.4 gm/dL (6.4-8.2)
[2018-09-05 06:07] LABS: INR 1.4 (0.8-3.0); PROTHROMBIN TIME 15.4 SECONDS (9.7-12.8)
--- NOTE | 2018-09-05 07:20 | NUR ---
Bedside report recieved from JORGE Sinclair.
--- NOTE | 2018-09-05 07:26 | NUR ---
Bedside report given to JORGE Gaspar.
[2018-09-05 07:48] LABS: BAND 18 % (0-10); LYMPHOCYTE 7 % (20.0-51.0); NEUTROPHILS 72 % (42.0-75.2); PLATELET ESTIMATE NORMAL (NORMAL)
[2018-09-05 07:49] LABS: TOXIC GRANULATION PRESENT
[2018-09-05 07:55] VITALS: BP 107/65; PULSE 92; TEMP 99.1
--- NOTE | 2018-09-05 08:17 | NUR ---
Called Geraldine to clarify diet at [facility] and to request her Tecfidera medication as we do not carry it.
--- NOTE | 2018-09-05 09:30 | NUR ---
Assessment complete, AM care complete, patient repositioned for comfort.
--- NOTE | 2018-09-05 10:00 | NUR ---
Steve called back and stated the "tecfidera" has been on hold at the [facility].
--- NOTE | 2018-09-05 12:05 | NUR ---
Patient repositioned for comfort, assisted patient in ordering lunch, family at bedside. Call light within reach.
[2018-09-05 12:08] VITALS: BP 98/61; PULSE 88; TEMP 98.6
[2018-09-05 15:50] VITALS: BP 103/53; PULSE 84; TEMP 98.4
--- NOTE | 2018-09-05 15:51 | NUR ---
Patient repositioned, notified patient that her daughter had called and requested her to call when she woke up, phone given to patient. Call light within reach.
--- NOTE | 2018-09-05 18:56 | NUR ---
Bedside report given to JORGE Sinclair.
[2018-09-05 20:00] VITALS: BP 112/74; PULSE 101; TEMP 99.5
--- NOTE | 2018-09-05 20:00 | NUR ---
Shift assessment complete at this time. Plan of care reviewed at bedside with patient. Additional time taken to address any other needs or concerns. Vitals stable at this time. Reports minor headache at 3/10 pain. Will administer PRN tylenol. Will continue to monitor.
[2018-09-06] VITALS (7 sets, daily range): BP systolic 107–126; BP diastolic 62–77; PULSE 88–103; TEMP 98.6–99.3
--- NOTE | 2018-09-06 | NUR ---
Pt sleeping comfortably in bed. Denies pain or any other discomfort. Vitals stable at this time. Will continue to monitor.
--- NOTE | 2018-09-06 04:00 | NUR ---
Pt sleeping comfortably in bed. Denies pain or any other discomfort. Vitals stable at this time. Will continue to monitor.
[2018-09-06 05:32] LABS: BASO # 0.1 (0.0-0.2); BASO % 0.3 % (0.0-2.0); EOS # 0.4 (0.0-0.7); EOS % 2.3 % (0-4.0); GRAN % 78.6 % (42.2-75.2); HEMATOCRIT 33.7 % (37.0-47.0); HEMOGLOBIN 10.6 g/dl (12.5-16.0); LYMPH % 11.8 % (20.0-51.0); MEAN CELL VOLUME 97 fl (80.0-100.0); MEAN CORPUSCULAR HEMOGLOBIN 31 pg (27.0-31.0); MEAN CORPUSCULAR HGB CONC 32 g/dl (33.0-37.0); MEAN PLATELET VOLUME 9.9 fl (7.4-10.4); MONO # 1.1 (0.1-0.6); MONO % 6.5 % (1.7-9.3); PLATELET COUNT 188 K/mm3 (130-400); RED BLOOD COUNT 3.48 M/mm3 (4.10-5.30); REDCELL DISTRIBUTION WIDTH-CV 13.5 % (11.5-14.5)
[2018-09-06 05:37] LABS: INR 1.3 (0.8-3.0); PROTHROMBIN TIME 14.5 SECONDS (9.7-12.8)
[2018-09-06 05:43] LABS: ALBUMIN 2.5 gm/dL (3.5-5.0); BILIRUBIN,TOTAL 0.1 mg/dL (0.0-1.0); CALCIUM 8.1 mg/dL (8.4-10.2); CREATININE, serum 0.57 mg/dL (0.52-1.25); MAGNESIUM 1.9 mg/dL (1.6-2.3); PHOSPHOROUS 2.7 mg/dL (2.5-4.5); POTASSIUM 3.9 mmol/L (3.4-5.0); TOTAL PROTEIN 5.6 gm/dL (6.4-8.2)
--- NOTE | 2018-09-06 07:04 | NUR ---
Bedside report given to JORGE Gaspar.
--- NOTE | 2018-09-06 07:25 | NUR ---
Bedside report received from JORGE Sinclair.
--- NOTE | 2018-09-06 08:00 | NUR ---
Assessment complete, patient resting bed, alert and oriented. AM care provided. Call light within reach.
--- NOTE | 2018-09-06 08:30 | NUR ---
PT in working with patient.
--- NOTE | 2018-09-06 13:03 | NUR ---
Report called to JORGE Maldonado.
--- NOTE | 2018-09-06 13:54 | NUR ---
Patient transferred to [facility] via bed with all belongings. JORGE Fabian and NEHA Hernandez here to transfer patient.
--- NOTE | 2018-09-06 13:57 | NUR ---
Attemped to call patient's son and daughter, no answer on either line, did not leave message.
--- NOTE | 2018-09-06 14:00 | NUR ---
PATIENT ORIENTED TO ROOM 317 FROM ICU. SHE IS REPOSITIONED IN BED. SHE DENIES NEEDS.
--- NOTE | 2018-09-06 15:15 | NUR ---
PATIENT SON CALLS BACK AND HE IS NOTIFIED THAT SHE WAS TRANSFERED TO ROOM 317. NO FURTHER QUESTIONS.
--- NOTE | 2018-09-06 18:04 | NUR ---
PATIENT IS REPOSITIONED DECLINES TO EAT SUPPER TONIGHT.
--- NOTE | 2018-09-06 19:28 | NUR ---
Resting in bed. Assessment complete. Bases bilaterally diminished. Heart sounds normal. Bowel sounds active. +1 edema to lower legs. Repositioned. Denies pain. Denies needs at this time. Call light in reach.
--- NOTE | 2018-09-06 20:43 | NUR ---
Repositioned in bed. Refused miralax. Denies other needs. Call light in reach.
--- NOTE | 2018-09-07 00:22 | NUR ---
Resting in bed. Reports headache. Provided PRN tylenol. Denies other needs. Call light in reach.
--- NOTE | 2018-09-07 02:37 | NUR ---
Incontinent of bowel. Cares provided. Denies other needs. Call light in reach.
[2018-09-07 04:05] VITALS: BP 149/71; PULSE 97; TEMP 98
--- NOTE | 2018-09-07 05:59 | NUR ---
Resting in bed this AM. Uneventful night. Repositioned Q2H. Denies needs. Call light in reach.
[2018-09-07 06:02] LABS: BASO # 0.1 (0.0-0.2); BASO % 0.5 % (0.0-2.0); EOS # 0.5 (0.0-0.7); GRAN # 6.6 (1.4-6.5); GRAN % 64.5 % (42.2-75.2); HEMOGLOBIN 10.7 g/dl (12.5-16.0); LYMPH # 2.2 (1.2-3.4); LYMPH % 21.8 % (20.0-51.0); MEAN CELL VOLUME 95 fl (80.0-100.0); MEAN CORPUSCULAR HEMOGLOBIN 30 pg (27.0-31.0); MEAN CORPUSCULAR HGB CONC 32 g/dl (33.0-37.0); MEAN PLATELET VOLUME 10.1 fl (7.4-10.4); MONO # 0.8 (0.1-0.6); MONO % 7.6 % (1.7-9.3); PLATELET COUNT 206 K/mm3 (130-400); RED BLOOD COUNT 3.54 M/mm3 (4.10-5.30); REDCELL DISTRIBUTION WIDTH-CV 13.3 % (11.5-14.5)
[2018-09-07 06:04] LABS: HEMATOCRIT 33.7 % (37.0-47.0)
[2018-09-07 06:16] LABS: INR 1.2 (0.8-3.0); PROTHROMBIN TIME 13.9 SECONDS (9.7-12.8)
[2018-09-07 06:26] LABS: ALBUMIN 2.6 gm/dL (3.5-5.0); BILIRUBIN,TOTAL 0.2 mg/dL (0.0-1.0); CALCIUM 8.5 mg/dL (8.4-10.2); CREATININE, serum 0.56 mg/dL (0.52-1.25); MAGNESIUM 1.6 mg/dL (1.6-2.3); POTASSIUM 3.5 mmol/L (3.4-5.0); TOTAL PROTEIN 5.8 gm/dL (6.4-8.2)
[2018-09-07 08:38] VITALS: BP 113/72; PULSE 91; TEMP 98
--- NOTE | 2018-09-07 09:10 | NUR ---
PICC intact right upper arm with sterile dressing change done with insertion site cleansed with chloraprep x1, chlorhexidine impregnated disk applied, skin prep, stat lock, and tegaderm applied. no signs or symptoms of IV complications noted. no concerns voiced. re-wrapped with cherry to protect catheter.
--- NOTE | 2018-09-07 09:50 | NUR ---
Pt resting in bed with call light within reach; assessment complete and charted. Pt remains chronically weak; right arm is her strongest extremity. Suprapubic catheter intact, draining clear yellow urine. Denies further needs at this time; will continue to monitor.
[2018-09-07 12:07] VITALS: BP 113/61; PULSE 85; TEMP 98.6
--- NOTE | 2018-09-07 13:54 | NUR ---
NAFISA met with the patient to discuss discharge plan. The patient resides at [facility] for long-term care and the patient states that she would like to return there upon discharge. The patient gave her verbal consent for the patient choice form and she was provided a copy. NAFISA has contacted and faxed updates to Yoan at [facility]. NAFISA to continue to follow.
[2018-09-07 17:03] VITALS: BP 125/69; PULSE 79; TEMP 98.7
--- NOTE | 2018-09-07 18:00 | NUR ---
Pt resting in bed with call light within reach. Repositioned frequently today. Pt had uneventful day. Denies further needs at this time; will continue to monitor.
--- NOTE | 2018-09-07 18:49 | NUR ---
Report given to JORGE Lomeli. PT resting in bed.
[2018-09-07 19:45] VITALS: BP 115/66; PULSE 95; TEMP 98.6
--- NOTE | 2018-09-07 20:00 | NUR ---
Shift assessment complete. Pt resting in bed, awake, a&o, cooperative c cares. Pt denies specific pain or c/o at this time. PICC noted, patent c good blood return. Pt denies needs. Call light in reach, bed alarm on. Will monitor.
[2018-09-07 23:50] VITALS: BP 123/72; PULSE 94; TEMP 98.9
[2018-09-08 02:54] VITALS: BP 125/64; PULSE 91; TEMP 98.5
[2018-09-08 07:52] VITALS: BP 139/64; PULSE 92; TEMP 98.4
--- NOTE | 2018-09-08 08:50 | NUR ---
Assessment complete. Pt laying in bed to right side, A&O x 3. Breath sounds CTAB. BS active x 4. Pt denies pain at this time. Suprapubic catheter without s/s of complications. IVF's infusing per orders to right upper arm PICC without s/s of complications. Sched medications administered with applesauce, pt able to swallow without difficulty. No further needs reported. Call light in reach.
[2018-09-08 11:20] VITALS: BP 126/61; PULSE 80; TEMP 98.6
[2018-09-08 15:32] VITALS: BP 115/69; PULSE 76; TEMP 97.9
--- NOTE | 2018-09-08 18:00 | NUR ---
Pt reports discomfort to left leg, PRN Tylenol administered per orders and pt assisted with repositioning in bed. Call light in reach.
[2018-09-08 19:39] VITALS: BP 122/64; PULSE 83; TEMP 98.7
--- NOTE | 2018-09-08 20:30 | NUR ---
Shift assessment complete. Pt resting in bed, awake, a&o, cooperative c cares. Pt c/o continued pain to L hip, denies need for intervention at this time. Pt denies any other c/o. PICC noted to R upper arm, patent c good blood return. SP gema to dd s complication. Pt denies needs. Call light in reach, bed alarm on. Will monitor.
[2018-09-09 00:02] VITALS: BP 113/62; PULSE 80; TEMP 98.8
[2018-09-09 05:50] LABS: BASO % 0.5 % (0.0-2.0); EOS # 0.6 (0.0-0.7); EOS % 7.7 % (0-4.0); GRAN # 4.2 (1.4-6.5); HEMOGLOBIN 11.2 g/dl (12.5-16.0); LYMPH # 2.2 (1.2-3.4); MEAN CELL VOLUME 95 fl (80.0-100.0); MEAN CORPUSCULAR HEMOGLOBIN 30 pg (27.0-31.0); MEAN CORPUSCULAR HGB CONC 32 g/dl (33.0-37.0); MEAN PLATELET VOLUME 9.9 fl (7.4-10.4); MONO # 0.6 (0.1-0.6); MONO % 8.3 % (1.7-9.3); PLATELET COUNT 254 K/mm3 (130-400); RED BLOOD COUNT 3.72 M/mm3 (4.10-5.30); REDCELL DISTRIBUTION WIDTH-CV 13.2 % (11.5-14.5)
[2018-09-09 05:51] LABS: HEMATOCRIT 35.3 % (37.0-47.0)
[2018-09-09 06:08] LABS: CALCIUM 8.9 mg/dL (8.4-10.2); CREATININE, serum 0.58 mg/dL (0.52-1.25); MAGNESIUM 1.7 mg/dL (1.6-2.3); POTASSIUM 3.9 mmol/L (3.4-5.0)
--- NOTE | 2018-09-09 08:30 | NUR ---
Assessment complete. Pt laying in bed, A&O x 3. Breath sounds CTAB. BS active x 4. Pt reports pain to left hip is "okay" right now, denies need for medication or intervention at this time. PICC to right upper arm patent without s/s of complications. No further needs reported. Call light in reach.
[2018-09-09 08:40] VITALS: BP 127/69; PULSE 82; TEMP 99.1
--- NOTE | 2018-09-09 10:05 | NUR ---
NAFISA attended clinical rounds. The clinical team is consulting infectious disease for his recommendations on an antibiotic course for the patient. NAFISA contacted and faxed updates to Yoan at [facility] and will continue to follow.
[2018-09-09 12:29] VITALS: BP 122/66; PULSE 93; TEMP 98.4
[2018-09-09 16:25] VITALS: BP 131/85; PULSE 102; TEMP 98.4
--- NOTE | 2018-09-09 18:00 | NUR ---
Pt resting in bed with pillows for support. Uneventful shift, pt has denied the need for pain medication. Call light in reach.
--- NOTE | 2018-09-09 20:31 | NUR ---
Pt resting in bed watching TV, shift assessments complete, left Pt call light in reach, bed in lowest position.
[2018-09-09 20:37] VITALS: BP 110/86; PULSE 95; TEMP 98.5
[2018-09-09 23:52] VITALS: BP 125/71; PULSE 88; TEMP 98.5
[2018-09-10 02:31] VITALS: BP 122/62; PULSE 87; TEMP 98.3
--- NOTE | 2018-09-10 05:13 | NUR ---
Pt slept well during the night, no C/O pain VS have been stable during the night.
[2018-09-10 06:14] LABS: BASO # 0.1 (0.0-0.2); BASO % 0.5 % (0.0-2.0); EOS # 0.6 (0.0-0.7); EOS % 6.6 % (0-4.0); GRAN # 5.2 (1.4-6.5); GRAN % 56.5 % (42.2-75.2); HEMOGLOBIN 11.6 g/dl (12.5-16.0); LYMPH # 2.4 (1.2-3.4); LYMPH % 26.1 % (20.0-51.0); MEAN CELL VOLUME 95 fl (80.0-100.0); MEAN CORPUSCULAR HEMOGLOBIN 30 pg (27.0-31.0); MEAN CORPUSCULAR HGB CONC 32 g/dl (33.0-37.0); MEAN PLATELET VOLUME 9.9 fl (7.4-10.4); MONO # 0.8 (0.1-0.6); PLATELET COUNT 292 K/mm3 (130-400); RED BLOOD COUNT 3.82 M/mm3 (4.10-5.30); REDCELL DISTRIBUTION WIDTH-CV 13.2 % (11.5-14.5)
[2018-09-10 06:17] LABS: HEMATOCRIT 36.2 % (37.0-47.0)
[2018-09-10 06:32] LABS: CALCIUM 8.7 mg/dL (8.4-10.2); CREATININE, serum 0.57 mg/dL (0.52-1.25); MAGNESIUM 1.8 mg/dL (1.6-2.3); POTASSIUM 3.5 mmol/L (3.4-5.0)
[2018-09-10 08:24] VITALS: BP 112/60; PULSE 73; TEMP 98.6
[2018-09-10] MEDS ORDERED: FLEXERIL5 MG PO ×2 (09:05→09:06)
[2018-09-10] MEDS ORDERED: INVANZ INJ1 G/VIAL IV (09:05)
[2018-09-10] MEDS ORDERED: NORCO 325 MG-101 TAB PO (09:05)
[2018-09-10] MEDS ORDERED: MAG-OX 400400 MG/TAB PO (09:05)
[2018-09-10] MEDS ORDERED: EUCERIN1 CRE TOP (09:05)
[2018-09-10] MEDS ORDERED: NORCO 325 MG-51 TAB PO (09:05)
--- NOTE | 2018-09-10 10:12 | NUR ---
Pt resting in bed with call light within reach; assessment complete and charted. PICC intact to right upper arm, flushes with blood return. Suprapubic catheter intact. Denies further needs at this time; will continue to monitor.
--- NOTE | 2018-09-10 10:32 | NUR ---
The patient is to discharge today, 09/10, to [facility] for a skilled stay. Transportation was set for 1500, via [employer]. SW informed the patient and patient's nurse. They were both in agreeance. SW also presented and explained the IM form to the patient. The patient verbalized understanding, she gave SW a verbal consent, and she was provided a copy. No additional needs at this time.
[2018-09-10 11:45] VITALS: BP 110/59; PULSE 81; TEMP 98.1
[2018-09-10 14:55] VITALS: BP 110/59; PULSE 81; TEMP 98.1
--- NOTE | 2018-09-10 15:31 | NUR ---
Reviewed all discharge medications and follow up appointments. Report called to Geraldine, all questions answered in depth. Pt assisted to change gown and cleaned. Suprapubic catheter intact. PICC line intact to right upper arm, discharges with PICC line. Pt assisted to wheelchair via petra lift. Pt discharges.
== END 2018-09-10 15:32 | DRG 698 ==
LOC: COL.ER 15:07 → ICU 17:14 → MEDICAL 09-06 14:04
PROVIDERS: Emergency Medicine; Nurse Practitioner Family; Physician Assistant; ADMIT Internal Medicine
PROC: 02HV33Z Insertion of Infusion Device into Superior Vena Cava, Percutaneous Approach (ICD-10-PCS; principal; 2018-09-04)
DX: T83.511A Infection and inflammatory reaction due to indwelling urethral catheter, initial encounter (principal); A41.51 Sepsis due to Escherichia coli [E. coli]; G93.41 Metabolic encephalopathy; N39.0 Urinary tract infection, site not specified; B96.20 Unspecified Escherichia coli [E. coli] as the cause of diseases classified elsewhere; G35 Multiple sclerosis; G89.29 Other chronic pain; Z86.711 Personal history of pulmonary embolism; E83.42 Hypomagnesemia; E87.6 Hypokalemia; N31.9 Neuromuscular dysfunction of bladder, unspecified; Z79.01 Long term (current) use of anticoagulants
CPT/HCPCS: 99232-AI; 99233-AI; 99239; A4216; C1751; J2185; J3475; J7030; J7040

== ENCOUNTER → 2018-09-14 | Outpatient (CLI) | payer MEDICARE, MEDICAID ==
[~2018-09-14] MED LIST changes: +EUCERIN1 CRE TOP; +MAG-OX 400400 MG/TAB PO
[2018-09-14 15:22] LABS: BASO % 0.4 % (0.0-2.0); EOS # 0.4 (0.0-0.7); EOS % 4.6 % (0-4.0); GRAN # 5.6 (1.4-6.5); GRAN % 60.9 % (42.2-75.2); HEMATOCRIT 39.8 % (37.0-47.0); HEMOGLOBIN 12.5 g/dl (12.5-16.0); LYMPH # 2.4 (1.2-3.4); LYMPH % 25.7 % (20.0-51.0); MEAN CELL VOLUME 96 fl (80.0-100.0); MEAN CORPUSCULAR HEMOGLOBIN 30 pg (27.0-31.0); MEAN CORPUSCULAR HGB CONC 31 g/dl (33.0-37.0); MEAN PLATELET VOLUME 10.1 fl (7.4-10.4); MONO # 0.7 (0.1-0.6); MONO % 7.7 % (1.7-9.3); PLATELET COUNT 449 K/mm3 (130-400); RED BLOOD COUNT 4.13 M/mm3 (4.10-5.30); REDCELL DISTRIBUTION WIDTH-CV 13.2 % (11.5-14.5)
[2018-09-14 15:24] LABS: ALBUMIN 2.9 gm/dL (3.5-5.0); BILIRUBIN,TOTAL 0.2 mg/dL (0.0-1.0); CALCIUM 9.2 mg/dL (8.4-10.2); CREATININE, serum 0.62 mg/dL (0.52-1.25); POTASSIUM 4.8 mmol/L (3.4-5.0); TOTAL PROTEIN 6.1 gm/dL (6.4-8.2)
== END ==
LOC: ZCOL.LAB 13:29
PROVIDERS: Internal Medicine
DX: G35 Multiple sclerosis (principal)

== ENCOUNTER → 2018-09-21 | Outpatient (REF) ==
[2018-09-21 16:53] LABS: HEMOGLOBIN 11.6 g/dl (12.5-16.0)
[2018-09-21 17:09] LABS: BILIRUBIN,TOTAL 0.4 mg/dL (0.0-1.0); CALCIUM 8.8 mg/dL (8.4-10.2); CREATININE, serum 0.56 mg/dL (0.52-1.25); POTASSIUM 4.7 mmol/L (3.4-5.0); TOTAL PROTEIN 6.1 gm/dL (6.4-8.2)
[2018-09-21 17:11] LABS: HEMATOCRIT 36.4 % (37.0-47.0)
[2018-09-21 17:39] LABS: THYROID STIMULATING HORMONE 1.64 uIU/mL (0.465-4.680)
== END ==
LOC: ZCOL.LAB 16:48
PROVIDERS: Internal Medicine
DX: G35 Multiple sclerosis (principal); E55.9 Vitamin D deficiency, unspecified

== ENCOUNTER → 2018-09-29 | Outpatient (CLI) | payer MEDICARE, MEDICAID | LOC: ZCOL.LAB 13:01 | DX: E83.42 Hypomagnesemia (principal); M25.512 Pain in left shoulder ==

== ENCOUNTER → 2018-10-12 | Outpatient (CLI) | payer MEDICARE, MEDICAID ==
[2018-10-12 13:17] LABS: BASO % 0.6 % (0.0-2.0); EOS # 0.4 (0.0-0.7); EOS % 6.2 % (0-4.0); GRAN # 3.9 (1.4-6.5); HEMATOCRIT 40.3 % (37.0-47.0); HEMOGLOBIN 12.7 g/dl (12.5-16.0); LYMPH # 1.9 (1.2-3.4); MEAN CELL VOLUME 96 fl (80.0-100.0); MEAN CORPUSCULAR HEMOGLOBIN 30 pg (27.0-31.0); MEAN CORPUSCULAR HGB CONC 32 g/dl (33.0-37.0); MEAN PLATELET VOLUME 11.1 fl (7.4-10.4); MONO # 0.5 (0.1-0.6); MONO % 6.9 % (1.7-9.3); PLATELET COUNT 270 K/mm3 (130-400); RED BLOOD COUNT 4.18 M/mm3 (4.10-5.30)
[2018-10-12 14:34] LABS: ALBUMIN 3.1 gm/dL (3.5-5.0); BILIRUBIN,TOTAL 0.3 mg/dL (0.0-1.0); CALCIUM 9.1 mg/dL (8.4-10.2); CREATININE, serum 0.71 mg/dL (0.52-1.25); POTASSIUM 4.5 mmol/L (3.4-5.0)
== END ==
LOC: ZCOL.LAB 12:02
PROVIDERS: Internal Medicine
DX: Z45.2 Encounter for adjustment and management of vascular access device (principal)

== ENCOUNTER → 2018-10-27 | Outpatient (CLI) | payer MEDICARE, MEDICAID ==
[2018-10-27 17:08] LABS: BASO % 0.4 % (0.0-2.0); EOS # 0.4 (0.0-0.7); EOS % 4.7 % (0-4.0); GRAN % 61.7 % (42.2-75.2); HEMATOCRIT 43.7 % (37.0-47.0); HEMOGLOBIN 13.5 g/dl (12.5-16.0); LYMPH # 2.1 (1.2-3.4); LYMPH % 25.7 % (20.0-51.0); MEAN CELL VOLUME 98 fl (80.0-100.0); MEAN CORPUSCULAR HEMOGLOBIN 30 pg (27.0-31.0); MEAN CORPUSCULAR HGB CONC 31 g/dl (33.0-37.0); MEAN PLATELET VOLUME 10.5 fl (7.4-10.4); MONO # 0.6 (0.1-0.6); MONO % 7.3 % (1.7-9.3); PLATELET COUNT 371 K/mm3 (130-400); RED BLOOD COUNT 4.45 M/mm3 (4.10-5.30); REDCELL DISTRIBUTION WIDTH-CV 12.9 % (11.5-14.5)
[2018-10-27 17:14] LABS: ALBUMIN 3.6 gm/dL (3.5-5.0); BILIRUBIN,TOTAL 0.2 mg/dL (0.0-1.0); CALCIUM 9.5 mg/dL (8.4-10.2); CREATININE, serum 0.79 mg/dL (0.52-1.25)
== END ==
LOC: ZCOL.LAB 16:29
PROVIDERS: Internal Medicine
DX: I10 Essential (primary) hypertension (principal); E08.9 Diabetes mellitus due to underlying condition without complications; E55.9 Vitamin D deficiency, unspecified

== ENCOUNTER → 2019-02-18 | Outpatient (CLI) | payer MEDICARE ==
[2019-02-18 13:44] LABS: ALBUMIN 3.5 gm/dL (3.5-5.0); BILIRUBIN,TOTAL 0.4 mg/dL (0.0-1.0); CALCIUM 9.3 mg/dL (8.4-10.2); CREATININE, serum 0.68 (0.52-1.25); POTASSIUM 4.6 mmol/L (3.4-5.0); TOTAL PROTEIN 6.7 gm/dL (6.4-8.2)
[2019-02-18 14:14] LABS: THYROID STIMULATING HORMONE 2.44 uIU/mL (0.465-4.680)
== END ==
LOC: ZCOL.LAB 12:35
PROVIDERS: Family Medicine
DX: G35 Multiple sclerosis (principal); I10 Essential (primary) hypertension; E11.40 Type 2 diabetes mellitus with diabetic neuropathy, unspecified

== ENCOUNTER 2019-03-01 09:28 | Outpatient (CLI) | payer MEDICARE, MEDICAID ==
[2019-03-01] VITALS (10 sets, daily range): BP systolic 108–157; BP diastolic 55–89; PULSE 61–100; TEMP 97.9–98.5
[2019-03-01] MEDS ORDERED: ASPIRIN E.C. 8181 MG PO (10:58)
[2019-03-01] MEDS ORDERED: CIPRODEX OT (11:01)
[2019-03-01] MEDS ORDERED: FLEXERIL5 MG PO (11:06)
[2019-03-01] MEDS ORDERED: DULCOLAX TAB5 MG PO (11:07)
[2019-03-01] MEDS ORDERED: MAG-OX 400400 MG/TAB PO (11:08)
[2019-03-01] MEDS ORDERED: NORCO 325 MG-101 TAB PO (11:31)
--- NOTE | 2019-03-01 12:00 | NUR ---
Pt assissted with lunch 100% eaten.
--- NOTE | 2019-03-01 16:12 | NUR ---
Pt soiled depend, pericare completed and clean depend put on pt. Pt transfered to w/c with petra lift and assist of 3. Geraldine called and stated transport already on their way.
--- NOTE | 2019-03-01 16:19 | NUR ---
Pt discharged per w/c with [facility] transport.
== END 2019-03-01 16:19 | disposition home or self-care (01) ==
LOC: EUO 09:28
DX: G35 Multiple sclerosis (principal); Z79.899 Other long term (current) drug therapy
CPT/HCPCS: J2350; J2930; J7040

== ENCOUNTER → 2019-03-02 | Outpatient (CLI) | payer MEDICARE, MEDICAID ==
[~2019-03-02] MED LIST changes: +ASPIRIN E.C. 8181 MG PO; +CIPRODEX OT
[2019-03-02 19:01] LABS: ALBUMIN 3.3 gm/dL (3.5-5.0); CALCIUM 9.4 mg/dL (8.4-10.2); CHOLESTEROL RISK RATIO 4.2; CREATININE, serum 0.62 (0.52-1.25); POTASSIUM 5.4 mmol/L (3.4-5.0); TOTAL PROTEIN 6.4 gm/dL (6.4-8.2)
[2019-03-02 19:30] LABS: THYROID STIMULATING HORMONE 0.87 uIU/mL (0.465-4.680)
== END ==
LOC: ZCOL.LAB 17:37
PROVIDERS: Family Medicine
DX: Z13.29 Encounter for screening for other suspected endocrine disorder (principal); G35 Multiple sclerosis; I10 Essential (primary) hypertension; E11.9 Type 2 diabetes mellitus without complications

== ENCOUNTER → 2019-03-18 | Outpatient (CLI) | payer MEDICARE, MEDICAID ==
[2019-03-18 20:28] LABS: ALANINE AMINOTRANSFERASE < 6 U/L (9-52); ALBUMIN 3.9 gm/dL (3.5-5.0); ALKALINE PHOSPHATASE 141 U/L (50-136); ANION GAP 10 mmol/L (7-16); AST,SGOT 50 U/L (15-37); BILIRUBIN,TOTAL 0.3 mg/dL (0.0-1.0); BLOOD UREA NITROGEN 12 mg/dL (7-17); CALCIUM 9.6 mg/dL (8.4-10.2); CARBON DIOXIDE 30 mmol/L (22-30); CHLORIDE 103 mmol/L (98-107); CHOLESTEROL 197 mg/dL (120-200); CREATININE, serum 0.68 (0.52-1.25); GLUCOSE 92 mg/dL (74-106); POTASSIUM 4.6 mmol/L (3.4-5.0); SODIUM 144 mmol/L (137-145); TOTAL PROTEIN 7.8 gm/dL (6.4-8.2)
== END ==
LOC: ZCOL.LAB 19:38
PROVIDERS: Family Medicine
DX: E78.5 Hyperlipidemia, unspecified (principal); R94.6 Abnormal results of thyroid function studies; R73.09 Other abnormal glucose

== ENCOUNTER → 2019-04-13 | Outpatient (CLI) | payer MEDICARE | LOC: ZCOL.LAB 16:18 | DX: I10 Essential (primary) hypertension (principal) ==

== ENCOUNTER → 2019-04-14 | Outpatient (CLI) | payer MEDICARE ==
[2019-04-14 22:46] LABS: CALCIUM 9.8 mg/dL (8.4-10.2); CREATININE, serum 0.76 (0.52-1.25); POTASSIUM 5.2 mmol/L (3.4-5.0); TOTAL PROTEIN 7.5 gm/dL (6.4-8.2)
[2019-04-15 00:03] LABS: BILIRUBIN UNCONJUGATED 0.2 mg/dL (0.0-1.1); BILIRUBIN,DIRECT 0.2 mg/dL (0.0-0.4); BILIRUBIN,TOTAL 0.3 mg/dL (0.0-1.0)
[2019-04-15 00:04] LABS: THYROID STIMULATING HORMONE 3.72 uIU/mL (0.465-4.680)
== END ==
LOC: ZCOL.LAB 14:29
PROVIDERS: Family Medicine
DX: G35 Multiple sclerosis (principal)

== ENCOUNTER → 2019-06-14 | Outpatient (CLI) | payer MEDICARE, MEDICAID ==
[2019-06-14 15:07] LABS: COLLECTION METHOD CATHETER
[2019-06-14 15:34] LABS: MUCOUS Present /lpf; PH 8 (5-8); URINE APPEARANCE Turbid; URINE BACTERIA None Seen /hpf; URINE BILIRUBIN Negative (NEGATIVE); URINE BLOOD 2+ (NEGATIVE); URINE CALCIUM OXALATE CRYSTAL Present /hpf; URINE COLOR Yellow; URINE GLUCOSE Negative (NEGATIVE); URINE KETONE Negative (NEGATIVE); URINE LEUKOCYTE ESTERASE 2+ (NEGATIVE); URINE NITRATE Negative (NEGATIVE); URINE PROTEIN(semi-quant) 2+ (NEGATIVE); URINE RBC >50 /hpf; URINE UROBILINOGEN Negative (NEGATIVE); URINE WBC >50 /hpf
== END ==
LOC: ZCOL.LAB 14:46
PROVIDERS: Family Medicine
DX: N39.0 Urinary tract infection, site not specified (principal)

== ENCOUNTER 2019-08-01 10:24 | Inpatient (IN) | payer MEDICARE, MEDICAID ==
[~2019-08-01] VITALS: Ht 172.7 cm; Wt 89.0 kg
[2019-08-01 11:29] LABS: COLLECTION METHOD CATHETER
[2019-08-01 11:29] LABS: ALANINE AMINOTRANSFERASE < 6 U/L (9-52); ALBUMIN 3.6 gm/dL (3.5-5.0); ALKALINE PHOSPHATASE 95 U/L (50-136); ANION GAP 8 mmol/L (7-16); AST,SGOT 15 U/L (15-37); BILIRUBIN,TOTAL 0.9 mg/dL (0.0-1.0); BLOOD UREA NITROGEN 16 mg/dL (7-17); CALCIUM 8.8 mg/dL (8.4-10.2); CARBON DIOXIDE 27 mmol/L (22-30); CHLORIDE 103 mmol/L (98-107); CREATININE, serum 1.09 (0.52-1.25); GLUCOSE 163 mg/dL (74-106); POTASSIUM 3.9 mmol/L (3.4-5.0); SODIUM 139 mmol/L (137-145); TOTAL PROTEIN 7.3 gm/dL (6.4-8.2)
[2019-08-01 11:39] LABS: TROPONIN-I < 0.012 ng/mL (0.000-0.035)
[2019-08-01 11:43] LABS: MUCOUS Present /lpf; PH 6 (5-8); URINE APPEARANCE Turbid; URINE BACTERIA Many /hpf; URINE BILIRUBIN Negative (NEGATIVE); URINE BLOOD 3+ (NEGATIVE); URINE COLOR Amber; URINE GLUCOSE Negative (NEGATIVE); URINE KETONE Negative (NEGATIVE); URINE LEUKOCYTE ESTERASE 2+ (NEGATIVE); URINE NITRATE Positive (NEGATIVE); URINE PROTEIN(semi-quant) 2+ (NEGATIVE); URINE RBC >50 /hpf
[2019-08-01 11:47] LABS: INR 1.4 (0.8-3.0); PROTHROMBIN TIME 16.1 SECONDS (9.7-12.8)
[2019-08-01 12:14] LABS: HEMATOCRIT 40.2 % (37.0-47.0); HEMOGLOBIN 12.9 g/dl (12.5-16.0); MEAN CELL VOLUME 94 fl (80.0-100.0); MEAN CORPUSCULAR HEMOGLOBIN 30 pg (27.0-31.0); MEAN CORPUSCULAR HGB CONC 32 g/dl (33.0-37.0); MEAN PLATELET VOLUME 9.4 fl (7.4-10.4); PLATELET COUNT 240 K/mm3 (130-400); RED BLOOD COUNT 4.29 M/mm3 (4.10-5.30)
[2019-08-01 12:59] LABS: BAND 13 % (0-10); LYMPHOCYTE 4 % (20.0-51.0); NEUTROPHILS 75 % (42.0-75.2); PLATELET ESTIMATE NORMAL (NORMAL)
--- NOTE | 2019-08-01 13:25 | NUR ---
PATIENT ASSESSMENT COMPLETED. SHE IS ADMITTED TO ROOM 316 FROM THE ED. REPOSITIONED IN THE BED AND CHANGED DEPENDS RELATED TO URINE INCONTINENCE
[2019-08-01 13:30] VITALS: BP 155/95; PULSE 113; TEMP 100.2
[2019-08-01 13:31] VITALS: BP 96/55; PULSE 85; TEMP 98.4
[2019-08-01] MEDS ORDERED: OMEGA-3 1000 MG1 CAP PO (15:22)
[2019-08-01] MEDS ORDERED: SUDAFED30 MG PO (15:35)
[2019-08-01] MEDS ORDERED: DAZIDOX10 MG PO (16:50)
[2019-08-01] MEDS ORDERED: ROXICODONE 55 MG/TAB PO (16:51)
--- NOTE | 2019-08-01 17:01 | NUR ---
SHE ALSO COMPLAINS THAT HER STOMACH REALLY HURTS. LOW GRADE TEMP OF 100.2
--- NOTE | 2019-08-01 17:01 | NUR ---
PATIENT REPORTS THAT SHE HAS NOT TAKEN ANY MEDICATIONS TODAY AT THE [facility]
[2019-08-01 17:30] VITALS: BP 155/95; PULSE 113; TEMP 100.2
--- NOTE | 2019-08-01 18:30 | NUR ---
PATIENT PRN TYLENOL WAS GIVEN WITH APPLESAUCE FOR FEVER. THERE WAS NO APPLESAUCE ON THE FLOOR PREVIOUSLY. GAVE IMMEDIATELY WHEN IT ARRIVED. SHE MOANS TO ANSWER ME. SHE FOLLOWS DIRECTIONS EASILY. SWALLOWS MEDICATION WITHOUT DIFFICULTY.
[2019-08-01 19:15] VITALS: BP 150/73; PULSE 131; TEMP 102.7
--- NOTE | 2019-08-01 20:00 | NUR ---
Shift assessment complete. Pt resting in bed, sleepy but easy to wake, a&o, cooperative c cares. Pt very slow to respond, responds best to yes/no questions. Pt c/o pain to abd, back et generalized; pt repositioned et PRN pain biomedical engineering aide. Pt denies any other c/o at this time. IV patent. Tele in place. Pt s further needs at this time. Call light in reach, bed alarm on. Will continue to monitor.
[2019-08-01 20:56] VITALS: TEMP 100.1
[2019-08-01 23:32] VITALS: BP 122/55; PULSE 132; TEMP 100.2
[2019-08-02] VITALS (9 sets, daily range): BP systolic 108–136; BP diastolic 54–84; PULSE 102–139; TEMP 98.2–102.9
[2019-08-02 07:07] LABS: BASO # 0.1 (0.0-0.2); BASO % 0.3 % (0.0-2.0); GRAN # 18.1 (1.4-6.5); GRAN % 87.8 % (42.2-75.2); HEMATOCRIT 37.6 % (37.0-47.0); LYMPH # 1.1 (1.2-3.4); LYMPH % 5.3 % (20.0-51.0); MEAN CELL VOLUME 95 fl (80.0-100.0); MEAN CORPUSCULAR HEMOGLOBIN 30 pg (27.0-31.0); MEAN CORPUSCULAR HGB CONC 32 g/dl (33.0-37.0); MEAN PLATELET VOLUME 9.9 fl (7.4-10.4); MONO # 1.1 (0.1-0.6); MONO % 5.5 % (1.7-9.3); PLATELET COUNT 207 K/mm3 (130-400); RED BLOOD COUNT 3.97 M/mm3 (4.10-5.30); REDCELL DISTRIBUTION WIDTH-CV 13.3 % (11.5-14.5)
[2019-08-02 07:16] LABS: CALCIUM 7.9 mg/dL (8.4-10.2); CREATININE, serum 1.38 (0.52-1.25); MAGNESIUM 2.1 mg/dL (1.6-2.3); PHOSPHOROUS 3.1 mg/dL (2.5-4.5); POTASSIUM 3.8 mmol/L (3.4-5.0)
--- NOTE | 2019-08-02 10:00 | NUR ---
UPON BEGINNING OF SHIFT. PT TEMP WAS SLIGHTLY ELEVATED. PULLED BACK HEAVY BLANKET AND RETOOK TEMP LATER, TEMP WAS BACK TO NORMAL LEVELS ON RECHECK. WILL CONTINUE TO MONITOR
--- NOTE | 2019-08-02 14:25 | NUR ---
NAFISA met with the patient to discuss discharge plan. The patient resides at [facility] for long-term care. The patient reports that she plans to return back to [facility] upon discharge. The patient's PCP is Dr. Olimpia Leal and she does not have advanced directives in EMR. NAFISA contacted the patient's son, Nico (ph#[phone]), to review plan. Nico confirmed plan. NAFISA explained the Patient Choice Form to Nico and he gave SW his verbal consent. Nico reports that the patient does have a DPOA-HC completed and that he is the patient's DPOA-HC. He states that [facility] should have a copy. NAFISA attempted to contact Yoan at [facility] to request a copy. NAFISA left her a voicemail and faxed over updates. SW to continue to follow.
--- NOTE | 2019-08-02 19:38 | NUR ---
PT HAD ELEVATED TEMP OF 102.[address] PLATA, NO NEW ORDERS
--- NOTE | 2019-08-02 20:00 | NUR ---
Received report from JORGE Gooden. Assessment complete. Alert and oriented. Denies any pain or discomfort or SOB. Per JORGE Gooden pt had temp of 102.9, PRN Tylenol 650mg administered at approx 1830. Rechecked temp at 2014, T101.4. HR sustained at 130s. Phoned Jimena and updated on pt status. Per Jimena to administer 400mg Motrin and NS 1000ml/hr and to do bladder scan. Motrin 400mg given and NS 1000ml started at 2024. Bladder scan showed ua residual of 72ml. At 2117, Temp decreased to 99.1, HR 128-129. New orders to DC recephin and to start meropenem. Administered as ordered.
[2019-08-03] VITALS (11 sets, daily range): BP systolic 84–110; BP diastolic 29–63; PULSE 93–119; TEMP 97.6–98.8
--- NOTE | 2019-08-03 00:53 | NUR ---
Pt currently sleeping. Meropenem administered. HR 108-109. Temp 98.8. Will continue to monitor pt.
--- NOTE | 2019-08-03 05:10 | NUR ---
Pt currently afebrile, T98.8. Made no complaints. Purewick external catheter in place, on cont suction, draining blood tinged urine. Monitored pt throughout the night. Call light within reach.
[2019-08-03 05:57] LABS: BASO # 0.1 (0.0-0.2); BASO % 0.3 % (0.0-2.0); EOS # 0.1 (0.0-0.7); EOS % 0.5 % (0-4.0); GRAN # 13.2 (1.4-6.5); GRAN % 86.2 % (42.2-75.2); HEMOGLOBIN 10.2 g/dl (12.5-16.0); LYMPH # 0.9 (1.2-3.4); LYMPH % 5.7 % (20.0-51.0); MEAN CELL VOLUME 95 fl (80.0-100.0); MEAN CORPUSCULAR HEMOGLOBIN 30 pg (27.0-31.0); MEAN CORPUSCULAR HGB CONC 32 g/dl (33.0-37.0); MONO % 6.3 % (1.7-9.3); PLATELET COUNT 160 K/mm3 (130-400); RED BLOOD COUNT 3.39 M/mm3 (4.10-5.30); REDCELL DISTRIBUTION WIDTH-CV 13.7 % (11.5-14.5)
[2019-08-03 05:59] LABS: HEMATOCRIT 32.2 % (37.0-47.0)
[2019-08-03 06:08] LABS: CALCIUM 7.9 mg/dL (8.4-10.2); CREATININE, serum 1.15 (0.52-1.25); POTASSIUM 3.8 mmol/L (3.4-5.0)
--- NOTE | 2019-08-03 07:01 | NUR ---
Report given to JORGE Thomas.
--- NOTE | 2019-08-03 09:10 | NUR ---
NAFISA contacted and faxed updates to Yoan at [facility]. NAFISA to continue to follow.
--- NOTE | 2019-08-03 11:24 | NUR ---
Pt in bed resting, no C/O pain at this time, medications given with applesauce, no swallowing issues, shift assessments complete, left Pt call button in reach, bed in lowset position.
--- NOTE | 2019-08-03 19:05 | NUR ---
Pt rested in the room today, Pt had her ureter stented this afternoon returning from the PACU about 1800 hrs, currently has ribeiro catheter placed and is draining red cloudy fluid, VS have remained stable.
--- NOTE | 2019-08-04 00:15 | NUR ---
BP LOW AT 84/38, 1000 ML BOLUS OF LR ORDERED BY PROVIDER
--- NOTE | 2019-08-04 01:20 | NUR ---
BP IMPROVED AFTER BOLUS, 104/53, HR 95
[2019-08-04 04:10] VITALS: BP 100/41; PULSE 95; TEMP 98.3
[2019-08-04 08:20] VITALS: BP 132/66; PULSE 96; TEMP 98.3
[2019-08-04 08:27] LABS: MEAN CELL VOLUME 96 fl (80.0-100.0); MEAN CORPUSCULAR HGB CONC 31 g/dl (33.0-37.0); MEAN PLATELET VOLUME 10.5 fl (7.4-10.4); PLATELET COUNT 139 K/mm3 (130-400); RED BLOOD COUNT 3.18 M/mm3 (4.10-5.30); REDCELL DISTRIBUTION WIDTH-CV 14.2 % (11.5-14.5)
[2019-08-04 08:31] LABS: HEMATOCRIT 30.4 % (37.0-47.0); HEMOGLOBIN 9.5 g/dl (12.5-16.0); MEAN CORPUSCULAR HEMOGLOBIN 30 pg (27.0-31.0)
[2019-08-04 08:40] LABS: CALCIUM 7.9 mg/dL (8.4-10.2); CREATININE, serum 0.88 (0.52-1.25); POTASSIUM 3.8 mmol/L (3.4-5.0)
[2019-08-04 09:05] LABS: BAND 31 % (0-10); LYMPHOCYTE 4 % (20.0-51.0); NEUTROPHILS 60 % (42.0-75.2); PLATELET ESTIMATE NORMAL (NORMAL)
--- NOTE | 2019-08-04 09:06 | NUR ---
Pt resting in bed, no C/O pain at this time, ribeiro independent drainage with reddish fluid, shift assessment complete, left Pt call button in reach, bed in lowest position.
[2019-08-04 12:33] VITALS: BP 141/65; PULSE 111; TEMP 99.3
[2019-08-04 16:49] VITALS: BP 145/77; PULSE 110; TEMP 99.8
[2019-08-04 19:06] VITALS: BP 153/89; PULSE 115; TEMP 100.2
--- NOTE | 2019-08-04 19:39 | NUR ---
Pt rested in the bed today, had C/O pain early this evening, medications given for relief, VS have remained stable.
--- NOTE | 2019-08-04 20:00 | NUR ---
Received report from JORGE Thomas. Assessment complete. Alert and oriented. PICC to RUBEN intact with fluids infusing. C/O pain to Lt arm, relieved with Roxicodone. At 2044 pt with T102.7, 650mg Tylenol given. Rechecked T at 2145, T102.9 and HR 120's, pt denies any pain or SOB at that time. Phoned PUAL Hess, Per Jimena to bolus 1L LR and administer Motrin 400mg. Will monitor pt. Sandoval catheter draining red-tinged urine. Scheduled meds administered whole with applesauce as ordered. Tele monitor in place, leads checked. Will continur to monitor pt.
[2019-08-04 23:32] VITALS: BP 140/81; PULSE 127; TEMP 100.8
[2019-08-05 01:30] VITALS: TEMP 97.9
[2019-08-05 04:00] VITALS: BP 111/68; PULSE 127; PULSE 48; TEMP 98
[2019-08-05 06:00] LABS: BASO % 0.2 % (0.0-2.0); EOS # 0.1 (0.0-0.7); EOS % 1.1 % (0-4.0); GRAN # 4.6 (1.4-6.5); GRAN % 75.4 % (42.2-75.2); LYMPH # 0.6 (1.2-3.4); LYMPH % 10.3 % (20.0-51.0); MEAN CELL VOLUME 95 fl (80.0-100.0); MEAN CORPUSCULAR HGB CONC 31 g/dl (33.0-37.0); MEAN PLATELET VOLUME 10.3 fl (7.4-10.4); MONO # 0.8 (0.1-0.6); MONO % 12.2 % (1.7-9.3); PLATELET COUNT 136 K/mm3 (130-400); RED BLOOD COUNT 3.34 M/mm3 (4.10-5.30); REDCELL DISTRIBUTION WIDTH-CV 14.3 % (11.5-14.5)
--- NOTE | 2019-08-05 06:12 | NUR ---
Temp decreased to 97.9 after administration of Motrin 400mg. HR decreased to 100's after administration of bolus 1L LR. Meds administered as ordered. Call light within reach. Sandoval in place and drained.
[2019-08-05 06:26] LABS: CALCIUM 7.9 mg/dL (8.4-10.2); MAGNESIUM 1.8 mg/dL (1.6-2.3); POTASSIUM 3.3 mmol/L (3.4-5.0)
[2019-08-05 06:28] LABS: HEMATOCRIT 31.6 % (37.0-47.0); HEMOGLOBIN 9.9 g/dl (12.5-16.0); MEAN CORPUSCULAR HEMOGLOBIN 30 pg (27.0-31.0)
--- NOTE | 2019-08-05 07:06 | NUR ---
Report given to JORGE Tran.
[2019-08-05 08:01] VITALS: BP 113/63; PULSE 94; TEMP 98
--- NOTE | 2019-08-05 09:40 | NUR ---
Patient resting in bed at this time. Patient denies any c/o pain/discomfort this AM. Skin w/d. Color normal. Lungs diminshed in bases. Resp even/unlabored. Abdo soft with bowel sounds. PPP. 2+ edema bilaterally. Patient has ribeiro that is patent with pink colored urine; small clots noted. Patient has no needs at this time
[2019-08-05 11:05] VITALS: BP 133/69; PULSE 108; TEMP 98.7
--- NOTE | 2019-08-05 11:07 | NUR ---
Patient continues to have non-productive cough. 02 sats 89% at this time. New order to place patient on 2L/NC.
--- NOTE | 2019-08-05 13:00 | NUR ---
Recieved call from Марина, Infection Control; patient is (+) for flu a. Patient's isolation changed to Droplet & Contact. GALDINO Minor made aware of lab results
[2019-08-05 15:15] VITALS: BP 121/60; PULSE 99; TEMP 98.8
--- NOTE | 2019-08-05 15:22 | NUR ---
NAFISA contacted and faxed updates to Yoan at [facility]. NAFISA to continue to follow.
[2019-08-05 19:18] VITALS: BP 136/70; PULSE 111; TEMP 98.8
--- NOTE | 2019-08-05 19:37 | NUR ---
Patient has rested throughout the day. Denies any c/o pain/discomfort. Continues to have non-productive; moist sounding cough. HOB up 25 degrees when patient will let the staff do so. IV antibiotic infusing. Patient has no other needs at this time
[2019-08-06] VITALS (7 sets, daily range): BP systolic 88–150; BP diastolic 48–79; PULSE 77–100; TEMP 97.4–98.9
--- NOTE | 2019-08-06 01:04 | NUR ---
PATIENT DOING WELL TONIGHT. ASSESSMENT DONE. ALERT AND ORIENTED. STATES SHE HAS A HEADACHE, PRN MEGAN GIVEN. PINK URINE OUTPUT NOTED FROM MCCLELLAND CATHETER. VSS. RUBEN PICC PATENT AND FLUSHES WITH GOOD BLOOD RETURN. TOOK PILLS WHOLE IN APPLESAUCE WITHOUT ISSUE. NO FURTHER NEEDS AT THIS TIME. WILL CONTINUE TO MONITOR.
--- NOTE | 2019-08-06 04:31 | NUR ---
PATIENT INCONTINENT OF STOOL. CLEANSED USING PERSONAL CLEANSING CLOTHS. ASSIST OF 2. NO FURTHER NEEDS AT THIS TIME.
[2019-08-06 09:03] LABS: BASO % 0.4 % (0.0-2.0); EOS # 0.1 (0.0-0.7); EOS % 2.3 % (0-4.0); GRAN # 3.4 (1.4-6.5); GRAN % 63.8 % (42.2-75.2); HEMOGLOBIN 10.4 g/dl (12.5-16.0); LYMPH # 0.9 (1.2-3.4); MEAN CELL VOLUME 95 fl (80.0-100.0); MEAN CORPUSCULAR HEMOGLOBIN 30 pg (27.0-31.0); MEAN CORPUSCULAR HGB CONC 31 g/dl (33.0-37.0); MEAN PLATELET VOLUME 10.6 fl (7.4-10.4); MONO # 0.8 (0.1-0.6); MONO % 15.7 % (1.7-9.3); PLATELET COUNT 164 K/mm3 (130-400); RED BLOOD COUNT 3.47 M/mm3 (4.10-5.30); REDCELL DISTRIBUTION WIDTH-CV 14.4 % (11.5-14.5)
[2019-08-06 09:05] LABS: CALCIUM 8.2 mg/dL (8.4-10.2); CREATININE, serum 0.92 (0.52-1.25); POTASSIUM 3.3 mmol/L (3.4-5.0)
[2019-08-06 09:11] LABS: HEMATOCRIT 33.1 % (37.0-47.0)
--- NOTE | 2019-08-06 15:13 | NUR ---
The patient is to tentatively be here through the weekend. NAFISA contacted and faxed updates to Yoan at [facility]. NAFISA to continue to follow.
--- NOTE | 2019-08-06 20:20 | NUR ---
Shift assessment complete. Pt resting in bed, sleepy but easy to wake, a&o, cooperative c cares. Pt c/o chronic pain to back/neck, rated "6/10", will provide PRN pain meds c HS meds per pt req. Pt denies any other c/o. PICC noted to R upper arm, patent c good blood return. Tell in place. Sandoval to DD. Pt denies further needs at this time. Call light in reach, bed alarm on. Will continue to monitor.
[2019-08-07 04:09] VITALS: BP 92/44; PULSE 80; TEMP 98.1
[2019-08-07 06:09] LABS: BASO % 0.5 % (0.0-2.0); EOS # 0.2 (0.0-0.7); EOS % 2.7 % (0-4.0); GRAN # 3.3 (1.4-6.5); LYMPH # 1.4 (1.2-3.4); MEAN CELL VOLUME 95 fl (80.0-100.0); MEAN CORPUSCULAR HGB CONC 31 g/dl (33.0-37.0); MEAN PLATELET VOLUME 10.2 fl (7.4-10.4); MONO # 0.6 (0.1-0.6); MONO % 10.5 % (1.7-9.3); PLATELET COUNT 204 K/mm3 (130-400); RED BLOOD COUNT 3.34 M/mm3 (4.10-5.30); REDCELL DISTRIBUTION WIDTH-CV 14.2 % (11.5-14.5)
[2019-08-07 06:24] LABS: CALCIUM 7.7 mg/dL (8.4-10.2); CREATININE, serum 0.92 (0.52-1.25); POTASSIUM 3.6 mmol/L (3.4-5.0)
[2019-08-07 06:35] LABS: HEMATOCRIT 31.7 % (37.0-47.0); HEMOGLOBIN 9.9 g/dl (12.5-16.0); MEAN CORPUSCULAR HEMOGLOBIN 30 pg (27.0-31.0)
[2019-08-07 08:08] VITALS: BP 83/51; BP 87/51; PULSE 83; TEMP 98
[2019-08-07 13:07] VITALS: BP 98/39; PULSE 82; TEMP 98.3
[2019-08-07 17:10] VITALS: BP 93/54; PULSE 85; TEMP 97.9
--- NOTE | 2019-08-07 19:09 | NUR ---
PT HAD UNEVENTFUL DAY. HAD BEEN MORE TALKATIVE DURING CARES THEN SHE WAS IN EARLIER WEEK. PLEASENT AND COOPERATIVE WITH CARES. NO NOTED FEVERS THIS SHIFT.
--- NOTE | 2019-08-07 19:45 | NUR ---
Shift assessment complete. Pt resting in bed, awake, a&o, cooperative c cares. Pt reports chronic pain to back et generalized, rated "5/10" at this time; will give PRN pain med c HS meds. Pt denies any other c/o. PICC noted to R upper arm, patent c good blood return. Tele in place. O2 per NC. Sandoval to DD. Pt denies further needs. Call light in reach, bed alarm on. Will continue to monitor.
[2019-08-07 19:55] VITALS: BP 108/58; PULSE 84; TEMP 97.9
[2019-08-08 00:58] VITALS: BP 122/63; PULSE 86; TEMP 98.4
--- NOTE | 2019-08-08 07:05 | NUR ---
appears to be sleeping, bedside shift report received from JORGE Lomeli
--- NOTE | 2019-08-08 08:00 | NUR ---
continues to appear to sleep
--- NOTE | 2019-08-08 09:15 | NUR ---
appears to be dozing when nurse entered room, awakened for am meds and full assessment completed, see interventions for further info, she had been incontinent of very large semi formed brown bowel movement, incontinent care provided, has some excoriation to perineum and area cleansed well, otherwise no redness to cocyx or buttocks, COAL SAMPLE TESTER will assist her with having breakfast
[2019-08-08 09:21] VITALS: BP 117/64; PULSE 91; TEMP 98.5
--- NOTE | 2019-08-08 10:09 | NUR ---
DOWELING MACHINE OPERATOR states she only ate small amount
[2019-08-08 10:55] LABS: HEMOGLOBIN 10.3 g/dl (12.5-16.0); MEAN CELL VOLUME 97 fl (80.0-100.0); MEAN CORPUSCULAR HEMOGLOBIN 30 pg (27.0-31.0); MEAN CORPUSCULAR HGB CONC 31 g/dl (33.0-37.0); MEAN PLATELET VOLUME 10.4 fl (7.4-10.4); RED BLOOD COUNT 3.47 M/mm3 (4.10-5.30); REDCELL DISTRIBUTION WIDTH-CV 14.4 % (11.5-14.5)
[2019-08-08 11:04] LABS: HEMATOCRIT 33.6 % (37.0-47.0); PLATELET COUNT 319 K/mm3 (130-400)
--- NOTE | 2019-08-08 12:10 | NUR ---
remains in bed, awakens easily and when asked denies pain or needs
[2019-08-08 12:16] LABS: BAND 6 % (0-10); EOSINOPHIL 5 % (0-4); LYMPHOCYTE 18 % (20.0-51.0); NEUTROPHILS 68 % (42.0-75.2); PLATELET ESTIMATE NORMAL (NORMAL)
[2019-08-08 12:18] VITALS: BP 110/61; PULSE 75; TEMP 98.1
[2019-08-08 17:16] VITALS: BP 119/60; PULSE 76; TEMP 98
--- NOTE | 2019-08-08 17:45 | NUR ---
assisted PRODUCE FIELD MERCHANDISER with incontinent care of smear of stool, patient denies needs
--- NOTE | 2019-08-08 18:53 | NUR ---
bedside shift report given to JORGE Lomeli
[2019-08-08 19:46] VITALS: BP 126/67; PULSE 74; TEMP 98.1
--- NOTE | 2019-08-08 20:00 | NUR ---
Shift assessment complete. Pt resting in bed, awake, a&o, cooperative c cares. Pt reports chronic back/neck pain, will given PRN pain med c HS meds per pt et family request. Pt denies any other c/o. PICC noted to R upper arm, patent c good blood return. Tele in place. Sandoval to DD. O2 per NC. Pt denies further needs at this time. Call light in reach, bed alarm on. Will continue to monitor.
[2019-08-08 23:47] VITALS: BP 124/51; PULSE 79; TEMP 97.7
[2019-08-09 03:31] VITALS: BP 119/57; PULSE 79; TEMP 98.1
[2019-08-09 06:31] LABS: HEMOGLOBIN 10.4 g/dl (12.5-16.0); MEAN CELL VOLUME 96 fl (80.0-100.0); MEAN CORPUSCULAR HEMOGLOBIN 30 pg (27.0-31.0); MEAN CORPUSCULAR HGB CONC 31 g/dl (33.0-37.0); MEAN PLATELET VOLUME 9.9 fl (7.4-10.4); PLATELET COUNT 378 K/mm3 (130-400); RED BLOOD COUNT 3.46 M/mm3 (4.10-5.30); REDCELL DISTRIBUTION WIDTH-CV 14.2 % (11.5-14.5)
[2019-08-09 06:39] LABS: HEMATOCRIT 33.3 % (37.0-47.0)
[2019-08-09 06:44] LABS: CALCIUM 8.3 mg/dL (8.4-10.2); CREATININE, serum 0.78 (0.52-1.25); POTASSIUM 4.1 mmol/L (3.4-5.0)
[2019-08-09 07:11] LABS: BAND 7 % (0-10); EOSINOPHIL 2 % (0-4); LYMPHOCYTE 34 % (20.0-51.0); METAMYELOCYTE 1 % (0-0); MYELOCYTE 1 % (0-0); NEUTROPHILS 52 % (42.0-75.2); PLATELET ESTIMATE NORMAL (NORMAL)
[2019-08-09 07:53] VITALS: BP 126/75; PULSE 77; TEMP 97.9
--- NOTE | 2019-08-09 08:30 | NUR ---
PICC right upper arm. With sterile technique right upper arm PICC dressing change done with insertion site cleansed with ChloraPrep 1, chlorhexidine impregnated disc applied, skin prep, StatLock, and Tegaderm applied. No signs or symptoms of IV complications noted. No concerns voiced. Arm wrapped with Mariano to protect catheter.
--- NOTE | 2019-08-09 10:34 | NUR ---
TURNED PT O2 OFF AT THIS TIME TO CHECK SATS ON ROOM AIR. WAS INITALLY ON 1L AND SATING AT 97%, WAS 92 WHEN INTIALLY TURNED OFF. PT CURRENTLY SATING AT 86 ROOM AIR. WILL RETURN TO 02 BUT ATTEMPT AT 0.5L AND MONITOR PT SATS AT THAT LEVEL
--- NOTE | 2019-08-09 10:46 | NUR ---
O2 SATS AT THIS TIME ARE 92% ON 0.5L OF OXYGEN. WILL CONTINUE TO MONITOR
--- NOTE | 2019-08-09 11:45 | NUR ---
RECHECKED O2 SAT AT THIS TIME. SATS 95% ON THE 0.5L
[2019-08-09 13:35] VITALS: BP 118/64; PULSE 88; TEMP 98
[2019-08-09] MEDS ORDERED: MERREM IV1 GM IV (13:46)
[2019-08-09] MEDS ORDERED: TOPROL XL 25MG25 MG PO (13:47)
[2019-08-09] MEDS ORDERED: TAMIFLU 75MG75 MG PO (13:47)
[2019-08-09] MEDS ORDERED: UROCIT-K15 MEQ PO (13:49)
--- NOTE | 2019-08-09 14:00 | NUR ---
ON VITALS RECHECK 02 SATS WHERE NOT SATSAINED AT 0.5L, INCREASED TO 1L, SATS RETUNED TO NORMAL LIMITS.
--- NOTE | 2019-08-09 15:56 | NUR ---
Landing Man attended clinical rounds with the team. Patient to discharge to [facility] today. NAFISA was notified by LILIBETH Minor that patient will need to have IV antibiotics for about three days upon discharge. NAFISA contacted Yoan at [facility] and obtained preference on antibiotic and notified LILIBETH Minor and pharmacy. NAFISA collaborated with Yoan to establish transport time for 1530 today. NAFISA met with patient and notified her of transport time. SW presented IM form and patient requested SW contact her son to obtain verbal signature over the phone. SW contacted patient's son, Nico to notify of discharge and present IM form. Nico is in agreeance with discharge plan and understands IM form. Nico provided verbal signature over the phone and NAFISA placed form on patient chart. NAFISA faxed discharge orders to Yoan at [facility] and provided reminder that patient requires half a liter of oxygen at this time. Patient to discharge today at 1530. No additional needs at this time.
--- NOTE | 2019-08-09 16:37 | NUR ---
PT ASSISTED INTO HER WHEELCHAIR, AFRICA KRUSE HERE TO TAKE PT TO FACIL. PT BELONGINGS SENT WITH HER. NO QUESTIONS VOICED.
--- NOTE | 2019-08-09 17:10 | NUR ---
REPORT CALLED TO AFRICA KRUSE
== END 2019-08-09 17:13 | DRG 853 ==
LOC: COL.ER 10:24 → MEDICAL 12:30
PROVIDERS: Emergency Medicine; Physician Assistant; Student in an Organized Health Care Education/Training Program; Urology; ADMIT Hospitalist
PROC: 0T768DZ Dilation of Right Ureter with Intraluminal Device, Via Natural or Artificial Opening Endoscopic (ICD-10-PCS; principal; 2019-08-03 16:15)
PROC: 02HV33Z Insertion of Infusion Device into Superior Vena Cava, Percutaneous Approach (ICD-10-PCS; 2019-08-03 16:15)
DX: A41.51 Sepsis due to Escherichia coli [E. coli] (principal); J96.01 Acute respiratory failure with hypoxia; N17.9 Acute kidney failure, unspecified; N13.6 Pyonephrosis; Z16.12 Extended spectrum beta lactamase (ESBL) resistance; G35 Multiple sclerosis; K21.9 Gastro-esophageal reflux disease without esophagitis; G89.29 Other chronic pain; I10 Essential (primary) hypertension; R65.20 Severe sepsis without septic shock; D25.9 Leiomyoma of uterus, unspecified; B96.4 Proteus (mirabilis) (morganii) as the cause of diseases classified elsewhere; N31.9 Neuromuscular dysfunction of bladder, unspecified; Z87.440 Personal history of urinary (tract) infections; Z86.711 Personal history of pulmonary embolism; Z79.82 Long term (current) use of aspirin; Z79.891 Long term (current) use of opiate analgesic; Z88.2 Allergy status to sulfonamides; Z88.0 Allergy status to penicillin; Z88.5 Allergy status to narcotic agent; Z88.8 Allergy status to other drugs, medicaments and biological substances; Z87.442 Personal history of urinary calculi; J10.89 Influenza due to other identified influenza virus with other manifestations
CPT/HCPCS: 99222-AI; 99231-AI; 99232-AI; 99233-AI; 99239; A4216; A4314; C1751; C1769; C1892; C2617; J0696; J2185; J2405; J2704; J3010; J7030; J7120; Q9967

== ENCOUNTER 2019-08-24 09:42 | Day surgery (SDC) | payer MEDICARE, MEDICAID ==
[~2019-08-24] VITALS: Ht 172.7 cm; Wt 92.5 kg
[~2019-08-24 09:42] MED LIST changes: +DAZIDOX10 MG PO; +OMEGA-3 1000 MG1 CAP PO; +ROXICODONE 55 MG/TAB PO; +SUDAFED30 MG PO; +TAMIFLU 75MG75 MG PO; +UROCIT-K15 MEQ PO
--- NOTE | 2019-08-24 10:15 | NUR ---
Pt has PICC line to Right upper arm. Dressing is wrinkled and curling, almost to fall off. Unable to obtain blood return on purple or red ports. AIVS notified and will come assess PICC line and do dressing change.
--- NOTE | 2019-08-24 11:00 | NUR ---
patient in same-day surgery bay. Patient is here for surgery. PICC intact right upper arm. With sterile technique right upper arm PICC dressing change done with insertion site cleansed with ChloraPrep 1, chlorhexidine impregnated disc applied, skin prep, StatLock, and Tegaderm applied. No signs or symptoms of IV complications noted. No concerns voiced. Arm wrapped with Mariano to protect catheter. Caps changed and both ports flushed with 10 mL normal saline with good blood return noted.
[2019-08-24 11:10] VITALS: BP 106/65; PULSE 95; TEMP 98.6
[2019-08-24] MEDS ORDERED: MUCUS RELIEF400 M1 PO (11:38)
[2019-08-24] MEDS ORDERED: ALBUTEROL0.83 MG/ML IH (11:39)
[2019-08-24 13:15] VITALS: BP 126/66; PULSE 77; TEMP 98
--- NOTE | 2019-08-24 13:15 | NUR ---
Pt SDC bay 2 via cart from PACU. Pt awake. Denies pain or nausea. Sandoval to dependant drainage with blackmon red urine noted draining. Stent strings noted taped to right thigh. No visitors here with pt at this time. VSS. Will continue monitor.
[2019-08-24 13:30] VITALS: BP 112/51; PULSE 82
--- NOTE | 2019-08-24 13:30 | NUR ---
Pt given juice and muffin. Pt consumed 100%. Pt denies nausea or pain. Will continue to monitor.
[2019-08-24 13:45] VITALS: BP 112/52; PULSE 80
--- NOTE | 2019-08-24 13:45 | NUR ---
Pt continues to rest. Denies needs. Call light within reach.
--- NOTE | 2019-08-24 14:00 | NUR ---
Pt dressed and assisted up to wheel chair via petra lift. PICC line flushed with 10ml NS. Mariano wrap to PICC line on.
--- NOTE | 2019-08-24 14:15 | NUR ---
Pt escorted to [employer] transportation via wheel chair. Report given to Bren LANGSTON. Questions invited and answered.
[2019-08-24 16:26] VITALS: BP 123/69; PULSE 80; TEMP 99.4
== END 2019-08-24 14:15 | disposition home or self-care (01) ==
LOC: SDCO 09:42
DX: N20.2 Calculus of kidney with calculus of ureter (principal); G35 Multiple sclerosis; Z86.711 Personal history of pulmonary embolism; K21.9 Gastro-esophageal reflux disease without esophagitis; G89.29 Other chronic pain; Z87.440 Personal history of urinary (tract) infections; Z79.82 Long term (current) use of aspirin; Z88.2 Allergy status to sulfonamides; Z88.1 Allergy status to other antibiotic agents; Z88.6 Allergy status to analgesic agent; Z88.5 Allergy status to narcotic agent; Z88.0 Allergy status to penicillin; I10 Essential (primary) hypertension
CPT/HCPCS: C1769; C2617; J0690; J1100; J2405; J2704; J3010; J7120

== ENCOUNTER 2019-09-02 09:50 | Outpatient (CLI) | payer MEDICARE, MEDICAID ==
[~2019-09-02] VITALS: Ht 172.7 cm; Wt 90.0 kg
[2019-09-02] VITALS (8 sets, daily range): BP systolic 101–124; BP diastolic 54–70; PULSE 56–77; TEMP 97.7–98.4
[~2019-09-02 09:50] MED LIST changes: +ALBUTEROL0.83 MG/ML IH; +MUCUS RELIEF400 M1 PO
--- NOTE | 2019-09-02 16:00 | NUR ---
pt up in w/c via lift, 119/76 pulse 87, report paper sent with dumpcart driver from [employer] for nurses report
== END 2019-09-02 16:00 ==
LOC: EUO 09:50
DX: G35 Multiple sclerosis (principal); Z79.899 Other long term (current) drug therapy
CPT/HCPCS: J2350; J2930; J7040

== ENCOUNTER → 2019-10-22 | Outpatient (CLI) | payer MEDICARE, MEDICAID ==
[~2019-10-22] MED LIST changes: +MONUROL 3 GM3 G/PKT PO; +ZOFRAN ODT4 MG PO
[2019-10-22 12:48] LABS: COLLECTION METHOD CATHETER
[2019-10-22 13:02] LABS: AMORPHOUS CRYSTAL Present /uL; MUCOUS Present /lpf; PH 8 (5-8); SQUAMOUS EPITHELIAL 0-2 /hpf; URINE APPEARANCE Cloudy; URINE BACTERIA Moderate /hpf; URINE BILIRUBIN Negative (NEGATIVE); URINE BLOOD 3+ (NEGATIVE); URINE COLOR Yellow; URINE GLUCOSE Negative (NEGATIVE); URINE KETONE Negative (NEGATIVE); URINE LEUKOCYTE ESTERASE 3+ (NEGATIVE); URINE NITRATE Negative (NEGATIVE); URINE PROTEIN(semi-quant) 2+ (NEGATIVE); URINE RBC >50 /hpf; URINE TRIPLE PHOSPHATE CRYSTAL Present /hpf; URINE UROBILINOGEN Negative (NEGATIVE); URINE WBC >50 /hpf
== END ==
LOC: ZCOL.LAB 11:56
PROVIDERS: Family Medicine
DX: N39.0 Urinary tract infection, site not specified (principal)

== ENCOUNTER → 2019-11-20 | Outpatient (CLI) | payer MEDICARE, MEDICAID | LOC: ZCOL.LAB 00:18 | DX: N39.0 Urinary tract infection, site not specified (principal) ==

== ENCOUNTER → 2019-12-17 | Outpatient (CLI) | payer MEDICARE, MEDICAID ==
[2019-12-18 00:27] LABS: COLLECTION METHOD CATHETER
[2019-12-18 00:53] LABS: AMORPHOUS CRYSTAL Present /uL; MUCOUS Present /lpf; PH 7 (5-8); SQUAMOUS EPITHELIAL 0-2 /hpf; URINE APPEARANCE Hazy; URINE BACTERIA Rare /hpf; URINE BILIRUBIN Negative (NEGATIVE); URINE BLOOD 2+ (NEGATIVE); URINE COLOR Yellow; URINE GLUCOSE Negative (NEGATIVE); URINE KETONE Negative (NEGATIVE); URINE LEUKOCYTE ESTERASE 3+ (NEGATIVE); URINE NITRATE Negative (NEGATIVE); URINE PROTEIN(semi-quant) Negative (NEGATIVE); URINE UROBILINOGEN Negative (NEGATIVE)
== END ==
LOC: ZCOL.LAB 21:00
PROVIDERS: Family Medicine
DX: N39.0 Urinary tract infection, site not specified (principal)

== ENCOUNTER → 2019-12-22 | Outpatient (CLI) | payer MEDICARE, MEDICAID ==
[2019-12-22 16:09] LABS: COLLECTION METHOD IN
[2019-12-22 16:20] LABS: AMORPHOUS CRYSTAL Present /uL; MUCOUS Present /lpf; PH 8 (5-8); SQUAMOUS EPITHELIAL 0-2 /hpf; URINE APPEARANCE Cloudy; URINE BACTERIA Moderate /hpf; URINE BILIRUBIN Negative (NEGATIVE); URINE BLOOD Negative (NEGATIVE); URINE COLOR Yellow; URINE GLUCOSE Negative (NEGATIVE); URINE KETONE Negative (NEGATIVE); URINE LEUKOCYTE ESTERASE Trace (NEGATIVE); URINE NITRATE Negative (NEGATIVE); URINE PROTEIN(semi-quant) 1+ (NEGATIVE); URINE UROBILINOGEN Negative (NEGATIVE)
== END ==
LOC: ZCOL.LAB 15:50
PROVIDERS: Family Medicine
DX: N39.0 Urinary tract infection, site not specified (principal)

== ENCOUNTER 2020-04-12 09:54 | Outpatient (CLI) | payer MEDICARE, MEDICAID ==
[2020-04-12] VITALS (10 sets, daily range): BP systolic 127–147; BP diastolic 76–88; PULSE 61–94; TEMP 97.9–98.2
[~2020-04-12] VITALS: Ht 165.1 cm; Wt 90.6 kg
--- NOTE | 2020-04-12 16:01 | NUR ---
Pt discharge with [facility] staff at this time via her personal wheelchair.
== END 2020-04-12 16:02 | disposition home or self-care (01) ==
LOC: EUO 09:54
DX: G35 Multiple sclerosis (principal); Z79.899 Other long term (current) drug therapy
CPT/HCPCS: J2350; J2930; J7040

== ENCOUNTER → 2020-06-20 | Outpatient (CLI) | payer MEDICARE, MEDICAID ==
[2020-06-20 11:30] LABS: BASO % 0.4 % (0.0-2.0); EOS # 0.5 (0.0-0.7); EOS % 7.6 % (0-4.0); GRAN # 3.8 (1.4-6.5); GRAN % 56.4 % (42.2-75.2); HEMATOCRIT 39.6 % (37.0-47.0); HEMOGLOBIN 12.4 g/dl (12.5-16.0); LYMPH # 1.8 (1.2-3.4); LYMPH % 27.1 % (20.0-51.0); MEAN CELL VOLUME 95 fl (80.0-100.0); MEAN CORPUSCULAR HEMOGLOBIN 30 pg (27.0-31.0); MEAN CORPUSCULAR HGB CONC 31 g/dl (33.0-37.0); MEAN PLATELET VOLUME 10.4 fl (7.4-10.4); MONO # 0.6 (0.1-0.6); MONO % 8.4 % (1.7-9.3); PLATELET COUNT 273 K/mm3 (130-400); RED BLOOD COUNT 4.18 M/mm3 (4.10-5.30); REDCELL DISTRIBUTION WIDTH-CV 12.5 % (11.5-14.5)
[2020-06-20 11:34] LABS: ALBUMIN 3.3 gm/dL (3.5-5.0); BILIRUBIN,TOTAL 0.4 mg/dL (0.0-1.0); CALCIUM 9.1 mg/dL (8.4-10.2); CREATININE, serum 0.79 (0.52-1.25); POTASSIUM 4.3 mmol/L (3.4-5.0); TOTAL PROTEIN 6.1 gm/dL (6.4-8.2)
== END ==
LOC: ZCOL.LAB 11:07
PROVIDERS: Family Medicine
DX: I10 Essential (primary) hypertension (principal)

== ENCOUNTER → 2020-08-22 | Outpatient (CLI) | payer MEDICARE, MEDICAID | LOC: ZCOL.LAB 14:44 | DX: I10 Essential (primary) hypertension (principal); M62.81 Muscle weakness (generalized) ==

== ENCOUNTER → 2020-08-28 | Outpatient (CLI) | payer MEDICARE, MEDICAID | LOC: ZCOL.LAB 10:41 | DX: M62.81 Muscle weakness (generalized) (principal) ==

== ENCOUNTER → 2020-09-19 | Outpatient (CLI) | payer MEDICARE, MEDICAID | LOC: COL.VAS 14:31 | DX: M79.89 Other specified soft tissue disorders (principal) ==

== ENCOUNTER → 2020-10-19 | Outpatient (CLI) | payer MEDICARE, MEDICAID | LOC: COL.LAB 14:12 | DX: G35 Multiple sclerosis (principal) ==

== ENCOUNTER 2020-11-17 09:56 | Outpatient (CLI) | payer MEDICARE, MEDICAID ==
[~2020-11-17] VITALS: Ht 165.1 cm; Wt 89.5 kg
[2020-11-17] VITALS (12 sets, daily range): BP systolic 106–137; BP diastolic 55–82; PULSE 68–83; TEMP 97.9
--- NOTE | 2020-11-17 16:30 | NUR ---
Pt tolerated infusion well today, she napped during much of the infusion. Ate a small amt of pizza amd drank lemonaide with assist. IV dc'd 1 hr after infusion was complete. Pt transferred back to wheelchair with lift. to exit for transportation back to [place].
== END 2020-11-17 18:09 ==
LOC: EUO 09:56
DX: G35 Multiple sclerosis (principal); Z79.899 Other long term (current) drug therapy
CPT/HCPCS: J2350; J2930; J7040

== ENCOUNTER → 2021-01-05 | Outpatient (CLI) | payer MEDICARE, MEDICAID | LOC: ZCOL.LAB 14:24 | DX: N39.0 Urinary tract infection, site not specified (principal) ==

== ENCOUNTER → 2021-01-23 | Outpatient (CLI) | payer MEDICARE, MEDICAID | LOC: COL.RAD 08:15 | DX: R90.82 White matter disease, unspecified (principal); G35 Multiple sclerosis | CPT/HCPCS: A9585 ==

== ENCOUNTER → 2021-01-29 | Outpatient (CLI) | payer MEDICARE, MEDICAID ==
[2021-01-29 16:27] LABS: COLLECTION METHOD CATHETER
[2021-01-29 16:35] LABS: MUCOUS Present /lpf; PH 8 (5-8); SQUAMOUS EPITHELIAL 0-2 /hpf; URINE APPEARANCE Clear; URINE BACTERIA Rare /hpf; URINE BILIRUBIN Negative (NEGATIVE); URINE BLOOD 1+ (NEGATIVE); URINE COLOR Straw; URINE GLUCOSE Negative (NEGATIVE); URINE KETONE Negative (NEGATIVE); URINE LEUKOCYTE ESTERASE 1+ (NEGATIVE); URINE NITRATE Negative (NEGATIVE); URINE PROTEIN(semi-quant) Negative (NEGATIVE); URINE UROBILINOGEN Negative (NEGATIVE)
== END ==
LOC: ZCOL.LAB 16:25
PROVIDERS: Family Medicine
DX: N39.0 Urinary tract infection, site not specified (principal)

== ENCOUNTER → 2021-02-20 | Outpatient (CLI) | payer MEDICARE, MEDICAID ==
[2021-02-20 22:32] LABS: COLLECTION METHOD CATHETER
[2021-02-20 22:45] LABS: PH 8 (5-8); SQUAMOUS EPITHELIAL 0-2 /hpf; URINE APPEARANCE Clear; URINE BACTERIA Occasional /hpf; URINE BILIRUBIN Negative (NEGATIVE); URINE BLOOD 2+ (NEGATIVE); URINE COLOR Yellow; URINE GLUCOSE Negative (NEGATIVE); URINE KETONE Negative (NEGATIVE); URINE LEUKOCYTE ESTERASE 2+ (NEGATIVE); URINE NITRATE Negative (NEGATIVE); URINE PROTEIN(semi-quant) Negative (NEGATIVE); URINE RBC 20-50 /hpf; URINE UROBILINOGEN Negative (NEGATIVE)
== END ==
LOC: ZCOL.LAB 18:46
PROVIDERS: Family Medicine
DX: N39.0 Urinary tract infection, site not specified (principal)

== ENCOUNTER → 2021-03-11 | Outpatient (CLI) | payer MEDICARE, MEDICAID ==
[2021-03-11 12:36] LABS: COLLECTION METHOD CATHETER
[2021-03-11 13:12] LABS: MUCOUS Present /lpf; PH 5 (5-8); SQUAMOUS EPITHELIAL 0-2 /hpf; URINE APPEARANCE Cloudy; URINE BACTERIA Moderate /hpf; URINE BILIRUBIN Negative (NEGATIVE); URINE BLOOD 3+ (NEGATIVE); URINE COLOR Yellow; URINE GLUCOSE Negative (NEGATIVE); URINE KETONE Negative (NEGATIVE); URINE LEUKOCYTE ESTERASE 2+ (NEGATIVE); URINE NITRATE Positive (NEGATIVE); URINE PROTEIN(semi-quant) 2+ (NEGATIVE); URINE RBC >50 /hpf; URINE UROBILINOGEN Negative (NEGATIVE); URINE WBC >50 /hpf
== END ==
LOC: ZCOL.LAB 11:23
PROVIDERS: Family Medicine
DX: N39.0 Urinary tract infection, site not specified (principal)

== ENCOUNTER → 2021-05-28 | Outpatient (CLI) | payer MEDICARE, MEDICAID ==
[2021-05-28 10:37] LABS: COLLECTION METHOD CATHETER
[2021-05-28 10:46] LABS: MUCOUS Present /lpf; PH 5 (5-8); URINE APPEARANCE Turbid; URINE BACTERIA Many /hpf; URINE BILIRUBIN Negative (NEGATIVE); URINE BLOOD 2+ (NEGATIVE); URINE CALCIUM OXALATE CRYSTAL Present /hpf; URINE COLOR Amber; URINE GLUCOSE Negative (NEGATIVE); URINE KETONE Negative (NEGATIVE); URINE LEUKOCYTE ESTERASE 3+ (NEGATIVE); URINE NITRATE Positive (NEGATIVE); URINE PROTEIN(semi-quant) 1+ (NEGATIVE); URINE RBC >50 /hpf; URINE UROBILINOGEN Negative (NEGATIVE); URINE WBC >50 /hpf
== END ==
LOC: ZCOL.LAB 10:32
PROVIDERS: Family Medicine
DX: N39.0 Urinary tract infection, site not specified (principal)

== ENCOUNTER → 2021-06-04 | Outpatient (CLI) | payer MEDICARE, MEDICAID ==
[2021-06-04 17:27] LABS: COLLECTION METHOD CLEAN CATCH
[2021-06-04 17:53] LABS: MUCOUS Present /lpf; PH 7 (5-8); SQUAMOUS EPITHELIAL 0-2 /hpf; URINE APPEARANCE Hazy; URINE BACTERIA Moderate /hpf; URINE BILIRUBIN Negative (NEGATIVE); URINE BLOOD 1+ (NEGATIVE); URINE COLOR Yellow; URINE GLUCOSE Negative (NEGATIVE); URINE KETONE Negative (NEGATIVE); URINE LEUKOCYTE ESTERASE 1+ (NEGATIVE); URINE NITRATE Negative (NEGATIVE); URINE PROTEIN(semi-quant) Negative (NEGATIVE); URINE UROBILINOGEN Negative (NEGATIVE); URINE WBC 20-50 /hpf
== END ==
LOC: ZCOL.LAB 16:50
PROVIDERS: Family Medicine
DX: N39.0 Urinary tract infection, site not specified (principal)

== ENCOUNTER → 2021-06-04 | Outpatient (CLI) | payer MEDICARE, MEDICAID | LOC: COL.RAD 10:15 | DX: N30.21 Other chronic cystitis with hematuria (principal) ==

== ENCOUNTER 2021-06-12 09:59 | Outpatient (CLI) | payer MEDICARE, MEDICAID ==
[2021-06-12] VITALS (9 sets, daily range): BP systolic 150–164; BP diastolic 82–90; PULSE 61–84; TEMP 97–97.5
== END 2021-06-12 16:00 | disposition home or self-care (01) ==
LOC: EUO 09:59
DX: G35 Multiple sclerosis (principal); Z79.899 Other long term (current) drug therapy
CPT/HCPCS: J2350; J2930; J7040

== ENCOUNTER → 2021-12-13 | Outpatient (CLI) | payer MEDICARE, MEDICAID ==
[2021-12-13 14:57] LABS: BASO % 0.7 % (0.0-2.0); EOS # 0.2 K/mm3 (0.0-0.7); EOS % 3.4 % (0.0-4.0); GRAN # 3.7 K/mm3 (1.4-6.5); HEMATOCRIT 45.1 % (37.0-47.0); HEMOGLOBIN 14.7 g/dl (12.5-16.0); LYMPH # 1.7 K/mm3 (1.2-3.4); LYMPH % 27.5 % (20.0-51.0); MEAN CELL VOLUME 93 fl (80.0-100.0); MEAN CORPUSCULAR HEMOGLOBIN 30 pg (27-31); MEAN CORPUSCULAR HGB CONC 33 g/dl (33.0-37.0); MEAN PLATELET VOLUME 9.4 fl (7.4-10.4); MONO # 0.4 K/mm3 (0.1-0.6); MONO % 7.2 % (1.7-9.3); PLATELET COUNT 280 K/mm3 (130-400); RED BLOOD COUNT 4.87 M/mm3 (4.10-5.30); REDCELL DISTRIBUTION WIDTH-CV 13.3 % (11.5-14.5)
[2021-12-13 15:13] LABS: ALBUMIN 3.2 gm/dL (3.4-4.8); BILIRUBIN,TOTAL 0.2 mg/dL (0.2-1.2); CALCIUM 9.2 mg/dL (8.4-10.2); CREATININE, serum 0.95 mg/dL (0.57-1.11); POTASSIUM 3.6 mmol/L (3.5-4.5); TOTAL PROTEIN 7.6 gm/dL (6.2-8.1)
[2021-12-18 08:58] LABS: A/G RATIO (PEP) 0.74 (()); BETA GLOBULINS (PEP) 1.3 g/dL (0.7-1.2)
== END ==
LOC: COL.LAB 14:15
PROVIDERS: Psychiatry & Neurology Neurology
DX: Z51.81 Encounter for therapeutic drug level monitoring (principal); G35 Multiple sclerosis

== ENCOUNTER → 2022-02-06 | Outpatient (CLI) | payer MEDICARE, MEDICAID ==
[2022-02-06 16:07] LABS: COLLECTION METHOD CATHETER
[2022-02-06 16:23] LABS: PH 7 (5-8); URINE APPEARANCE Hazy (CLEAR/HAZY); URINE BILIRUBIN Negative (NEGATIVE); URINE COLOR Yellow (YELLOW); URINE GLUCOSE Negative (NEGATIVE); URINE KETONE Negative (NEGATIVE); URINE LEUKOCYTE ESTERASE Negative (NEGATIVE); URINE NITRATE Negative (NEGATIVE); URINE PROTEIN(semi-quant) Negative (NEGATIVE); URINE UROBILINOGEN Negative (NEGATIVE)
[2022-02-06 16:28] LABS: MUCOUS Present (NOT PRESENT); SQUAMOUS EPITHELIAL 0-2 /hpf (0-10); URINE BACTERIA Moderate /hpf (NONE SEEN)
[2022-02-06 16:29] LABS: URINE BLOOD 1+ (NEGATIVE)
== END ==
LOC: ZCOL.LAB 15:27
PROVIDERS: Family Medicine
DX: Z01.89 Encounter for other specified special examinations (principal)

== ENCOUNTER 2022-02-08 17:36 | Emergency (ER) | payer MEDICARE, MEDICAID ==
[~2022-02-08] VITALS: Ht 167.6 cm; Wt 94.1 kg
[2022-02-08 17:59] VITALS: TEMP 98
[2022-02-08 20:28] VITALS: BP 133/81; PULSE 81
== END 2022-02-08 20:50 ==
LOC: COL.ER 17:36
DX: N39.0 Urinary tract infection, site not specified (principal); Z96.0 Presence of urogenital implants; Z88.0 Allergy status to penicillin; Z88.1 Allergy status to other antibiotic agents; Z88.2 Allergy status to sulfonamides

== ENCOUNTER 2022-02-19 09:58 | Outpatient (CLI) | payer MEDICARE, MEDICAID ==
[~2022-02-19] VITALS: Ht 165.1 cm; Wt 100.0 kg
[2022-02-19 11:00] VITALS: BP 129/90; PULSE 70; TEMP 97.7
[2022-02-19 11:30] VITALS: BP 134/76; PULSE 68; TEMP 97.9
[2022-02-19 12:00] VITALS: BP 134/69; PULSE 62
--- NOTE | 2022-02-19 12:15 | NUR ---
Patient here in for cares. PICC intact patient's left upper arm. dressing dated 02/11/2022. Sterile dressing change done on PICC. no signs or symptoms of IV complications noted.
[2022-02-19 12:30] VITALS: BP 131/67; PULSE 68; TEMP 97.6
[2022-02-19 13:00] VITALS: BP 128/65; PULSE 68; TEMP 97.7
--- NOTE | 2022-02-19 14:00 | NUR ---
pt discharged via own w/c with transporter
[2022-02-19] MEDS ORDERED: CRANBERRY450 MG (15:45)
[2022-02-19] MEDS ORDERED: PROTONIX20 MG PO (15:56)
[2022-02-19] MEDS ORDERED: HIPREX PO (15:56)
[2022-02-19] MEDS ORDERED: ELIQUIS 2.5 PO (15:56)
[2022-02-19] MEDS ORDERED: XTAMPZA ER18 MG PO (15:57)
== END 2022-02-19 14:00 ==
LOC: EUO 09:58
DX: G35 Multiple sclerosis (principal)
CPT/HCPCS: J2350; J2930; J7040

== ENCOUNTER → 2022-06-05 | Outpatient (CLI) | payer MEDICARE, MEDICAID ==
[~2022-06-05] MED LIST changes: +CRANBERRY450 MG; +ELIQUIS 2.5 PO; +HIPREX PO; +PROTONIX20 MG PO; +XTAMPZA ER18 MG PO
[2022-06-05 16:31] LABS: COLLECTION METHOD CATHETER
[2022-06-05 16:47] LABS: PH 8.5 (5.0-8.5); URINE APPEARANCE Hazy (CLEAR/HAZY); URINE BLOOD 2+ (NEGATIVE); URINE COLOR Yellow (YELLOW); URINE GLUCOSE Negative (NEGATIVE); URINE KETONE Negative (NEGATIVE); URINE NITRATE Negative (NEGATIVE); URINE PROTEIN(semi-quant) 2+ (NEGATIVE); URINE UROBILINOGEN 0.2 E.U/dL (0.2-1.0)
[2022-06-05 16:53] LABS: MUCOUS Present (NOT PRESENT); URINE BACTERIA Rare /hpf (NONE SEEN); URINE RBC >50 /hpf (0-2); URINE WBC >50 /hpf (0-2)
== END ==
LOC: ZCOL.LAB 16:27
PROVIDERS: Family Medicine
DX: N39.0 Urinary tract infection, site not specified (principal)

== ENCOUNTER → 2022-09-23 | Outpatient (CLI) | payer MEDICARE, MEDICAID | LOC: ZCOL.LAB 12:16 | DX: N39.0 Urinary tract infection, site not specified (principal) ==

== ENCOUNTER → 2022-10-23 | Outpatient (CLI) | payer MEDICARE, MEDICAID | LOC: COL.LAB 12:02 | DX: Z79.899 Other long term (current) drug therapy (principal) ==

== ENCOUNTER → 2023-08-01 | Outpatient (REF) | payer MEDICARE, MEDICAID ==
[~2023-08-01] MED LIST changes: +ASPERCREME ARTH50 GM TP; +B COMPLEX & B121 TAB; +B-121000 MCG PO; +CEPHALEXIN500 M1 PO; +DOXYCYCLINE HY100 MG PO; +DULCOLAX S10 MG/SUPP RC; +MULTI VITAMINS1 TAB PO; +NEURONTIN600 MG/TAB PO; +NEURONTIN800 MG/TAB PO; +NYAMYC100000 U/G TP; +REFRESH TEARS 330 ML OP; +ROBITUSSIN A-C S1 M1 PO; +ROBITUSSIN DM 105 ML PO; +VITAMINC1000TA PO
[2023-08-02 07:15] LABS: COLLECTION METHOD CLEAN CATCH
[2023-08-02 07:35] LABS: URINE COLOR Yellow (YELLOW)
[2023-08-02 07:36] LABS: URINE APPEARANCE Turbid (CLEAR/HAZY); URINE BACTERIA Many /hpf (NONE SEEN); URINE BLOOD 2+ (NEGATIVE); URINE GLUCOSE Negative (NEGATIVE); URINE KETONE Negative (NEGATIVE); URINE NITRATE Negative (NEGATIVE); URINE PROTEIN(semi-quant) 1+ (NEGATIVE); URINE RBC 20-50 /hpf (0-2); URINE UROBILINOGEN 0.2 E.U/dL (0.2-1.0); URINE WBC 20-50 /hpf (0-2)
== END ==
LOC: ZCOL.LAB 22:24
PROVIDERS: Family Medicine
DX: N39.0 Urinary tract infection, site not specified (principal)

== ENCOUNTER → 2023-11-30 | Outpatient (CLI) | payer MEDICARE, MEDICAID ==
[2023-11-30 15:44] LABS: COLLECTION METHOD CATHETER
[2023-11-30 15:59] LABS: PH 7.5 (5.0-8.5); URINE APPEARANCE CLOUDY (CLEAR/HAZY); URINE BLOOD 3+ (NEGATIVE); URINE COLOR YELLOW (YELLOW); URINE GLUCOSE NEGATIVE (NEGATIVE); URINE KETONE NEGATIVE (NEGATIVE); URINE NITRATE NEGATIVE (NEGATIVE); URINE PROTEIN(semi-quant) 1+ (NEGATIVE); URINE UROBILINOGEN 0.2 E.U/dL (0.2-1.0)
[2023-11-30 17:02] LABS: SQUAMOUS EPITHELIAL 0-2 /hpf (0-10)
[2023-11-30 17:04] LABS: URINE BACTERIA MANY /hpf (NONE SEEN)
== END ==
LOC: ZCOL.LAB 14:58
PROVIDERS: Family Medicine
DX: N39.0 Urinary tract infection, site not specified (principal)